=== PATIENT | male | born 1990 | race Two or more races ===

== ENCOUNTER 2018-04-17 01:09 | Emergency (ER) | payer OTHER ==
--- NOTE | 2018-04-17 07:38 | ED ---
Overdose HPI - General Chief Complaint: Overdose Stated Complaint: Drug Overdose Time Seen by Provider: 04/17/18 01:15 Source: EMS Mode of arrival: EMS Limitations: no limitations - History of Present Illness Initial Comments: This patient is 27-year-old man who was found unresponsive in the hotel. First responders did give Narcan which did revise the patient's. On arrival, patient admits to using opioids. Patient states that he was not trying to harm himself he believes he had just accidentally overdosed. Patient denies any other complaints. MD Complaint: accidental overdose -: minutes(s) Context: Accidental Overdose: wanted to get high Treatments Prior to Arrival: oxygen, narcan - Related Data Home Medications Medication Instructions Recorded Confirmed Unable To Assess [Unable to Assess] 04/17/18 04/17/18 Allergies Allergy/AdvReac Type Severity Reaction Status Date / Time No Known Allergies Allergy Verified 04/17/18 01:25 Review of Systems ROS Statement: Those systems with pertinent positive or pertinent negative responses have been documented in the HPI. ROS Other: All systems not noted in ROS Statement are negative. Constitutional: Denies: fever, chills Eyes: Denies: vision change Respiratory: Denies: cough, dyspnea Cardiovascular: Denies: chest pain, palpitations Gastrointestinal: Reports: nausea. Denies: abdominal pain, vomiting, diarrhea Musculoskeletal: Denies: back pain Skin: Denies: rash Neurological: Denies: headache, weakness, numbness Psychiatric: Denies: depression, homicidal thoughts, suicidal thoughts Past Medical History Additional Past Medical History / Comment(s): migraines History of Any Multi-Drug Resistant Organisms: None Reported Past Surgical History: No Surgical Hx Reported Past Psychological History: Anxiety Smoking Status: Current every day smoker Past Alcohol Use History: None Reported Past Drug Use History: Heroin, IV Drug Use, Prescription Drug Abuse General Exam Limitations: no limitations General appearance: alert, in no apparent distress Head exam: Present: atraumatic, normocephalic Eye exam: Present: normal appearance. Absent: scleral icterus, conjunctival injection Respiratory exam: Present: normal lung sounds bilaterally. Absent: respiratory distress, wheezes, rales, rhonchi, stridor Cardiovascular Exam: Present: normal rhythm, tachycardia, normal heart sounds. Absent: systolic murmur, diastolic murmur, rubs, gallop GI/Abdominal exam: Present: soft. Absent: distended, tenderness, guarding, rebound, mass Extremities exam: Present: normal inspection, normal capillary refill. Absent: pedal edema, calf tenderness Neurological exam: Present: alert Skin exam: Present: warm, dry, intact, normal color. Absent: rash Course Vital Signs 04/17/18 04/17/18 04/17/18 01:20 01:29 06:08 Temperature 101.4 F H 100.5 F H Pulse Rate 114 H 101 H 97 Respiratory 14 10 L 16 Rate Blood Pressure 139/84 125/61 118/75 O2 Sat by Pulse 99 95 95 Oximetry 04/17/18 08:15 Temperature 98.1 F Pulse Rate 98 Respiratory 18 Rate Blood Pressure 119/77 O2 Sat by Pulse 100 Oximetry Medical Decision Making - Medical Decision Making Patient is 27-year-old man with accidental heroin overdose. He is quin for safety. Did discuss rehabilitation and other follow-up. Disposition Clinical Impression: Poisoning by opiate or related narcotic, Drug overdose Disposition: HOME SELF-CARE Condition: Good Instructions: Adult Overdose (ED), Narcotic Use Disorder (ED) Is patient prescribed a controlled substance at d/c from ED?: No Referrals: Eyad Chacon DO [Medical Doctor] - 1-2 days
[2018-04-17 08:16] VITALS: BP 119/77; PULSE 98; RESP 18; TEMP 98.1
== END 2018-04-17 08:16 | disposition home or self-care (01) ==
LOC: EC 01:09
DX: T40.1X1A Poisoning by heroin, accidental (unintentional), initial encounter (principal); R00.0 Tachycardia, unspecified; F17.200 Nicotine dependence, unspecified, uncomplicated
CPT/HCPCS: 99284

== ENCOUNTER 2018-05-09 19:17 | Emergency (ER) | payer OTHER ==
[2018-05-09] MEDS ORDERED: NALOXONE 0.4 MG/ML 10 ML VIAL IVP STA (19:26)
[2018-05-09] MEDS ORDERED: ONDANSETRON 4 MG/2 ML VIAL IVP STA (19:27)
--- NOTE | 2018-05-09 19:34 | ED ---
General Adult HPI - General Chief complaint: Overdose Stated complaint: overdose Time Seen by Provider: 05/09/18 19:17 Source: patient, family, RN notes reviewed Mode of arrival: ambulatory Limitations: altered mental status - History of Present Illness Initial comments: This is a 27-year-old male who presents emergency Department with his father completely unresponsive dad makes the statement that he thinks his son overdosed on heroin. No further history was obtained at this time however when the patient eventually woke up from Narcan and he did admit to doing heroin. Patient denies any other drugs at this time he denies any physical complaints at this time. - Related Data Home Medications Medication Instructions Recorded Confirmed Buprenorphine HCl/Naloxone HCl 1 film SL BID 05/09/18 05/09/18 [Suboxone 8 mg-2 mg Sl Film] Allergies Allergy/AdvReac Type Severity Reaction Status Date / Time No Known Allergies Allergy Verified 05/09/18 19:58 Review of Systems ROS Statement: Those systems with pertinent positive or pertinent negative responses have been documented in the HPI. ROS Other: All systems not noted in ROS Statement are negative. Past Medical History Additional Past Medical History / Comment(s): migraines History of Any Multi-Drug Resistant Organisms: None Reported Past Surgical History: No Surgical Hx Reported Past Psychological History: Anxiety Smoking Status: Current every day smoker Past Alcohol Use History: None Reported Past Drug Use History: Heroin, IV Drug Use, Prescription Drug Abuse General Exam - General Exam Comments Initial Comments: GENERAL: Patient is well-developed and well-nourished. Patient is nontoxic and well- hydrated patient is completely unresponsive ENT: Neck is soft and supple. No significant lymphadenopathy is noted. Oropharynx is clear. Moist mucous membranes. Neck has full range of motion without eliciting any pain. EYES: The sclera were anicteric and conjunctiva were pink and moist. Eyes are pinpoint bilaterally PULMONARY: Agonal breathing CARDIOVASCULAR: There is a regular rate and rhythm without any murmurs gallops or rubs. ABDOMEN: Soft and nontender with normal bowel sounds. SKIN: Skin is clear with no lesions or rashes and otherwise unremarkable. NEUROLOGIC: Patient is poorly unresponsive MUSCULOSKELETAL: Normal extremities with adequate strength and full range of motion. LYMPHATICS: No significant lymphadenopathy is noted PSYCHIATRIC: Unable to assess Limitations: altered mental status Course Vital Signs 05/09/18 05/09/18 05/09/18 19:25 19:27 19:45 Temperature 98.3 F Pulse Rate 107 H 120 H Respiratory 6 L 16 14 Rate Blood Pressure 138/77 109/88 O2 Sat by Pulse 95 100 Oximetry Medical Decision Making - Medical Decision Making EKG shows sinus tachycardia at 131 bpm DC interval 228 QRS is 94 QT interval is 298 QTC is 440. Patient's EKG shows no ST segment elevation or depression or T wave abnormalities are noted. EKG is of poor quality secondary to the patient' s tremors after he was given Narcan. Chest x-ray showed no acute abnormality. Patient was given Narcan when he arrives here immediately woke up and vomited and became very tremulous - Lab Data Result diagrams: 05/09/18 17:56 Lab Results 05/09/18 Range/Units 17:56 WBC 8.1 (3.8-10.6) k/uL RBC 5.06 (4.30-5.90) m/uL Hgb 15.0 (13.0-17.5) gm/dL Hct 45.1 (39.0-53.0) % MCV 89.2 (80.0-100.0) fL MCH 29.6 (25.0-35.0) pg MCHC 33.2 (31.0-37.0) g/dL RDW 13.8 (11.5-15.5) % Plt Count 227 (150-450) k/uL Neutrophils % 73 % Lymphocytes % 20 % Monocytes % 3 % Eosinophils % 2 % Basophils % 1 % Neutrophils # 5.9 (1.3-7.7) k/uL Lymphocytes # 1.6 (1.0-4.8) k/uL Monocytes # 0.2 (0-1.0) k/uL Eosinophils # 0.2 (0-0.7) k/uL Basophils # 0.1 (0-0.2) k/uL Disposition Clinical Impression: Heroin overdose Disposition: HOME SELF-CARE Condition: Good Instructions: Narcotic Use Disorder (ED) 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
[2018-05-09 20:25] LABS: Basophils # (A) 0.1 k/uL (0-0.2); Basophils % (A) 1 %; Eosinophils # (A) 0.2 k/uL (0-0.7); Eosinophils % (A) 2 %; HCT 45.1 % (39.0-53.0); Lymphocytes # (A) 1.6 k/uL (1.0-4.8); Lymphocytes % (A) 20 %; MCH 29.6 pg (25.0-35.0); MCHC 33.2 g/dL (31.0-37.0); MCV 89.2 fL (80.0-100.0); Mean Platelet Volume 7.3; Monocytes # (A) 0.2 k/uL (0-1.0); Monocytes % (A) 3 %; Neutrophils # (A) 5.9 k/uL (1.3-7.7); Neutrophils % (A) 73 %; Platelet Count 227 k/uL (150-450); RBC 5.06 m/uL (4.30-5.90); RDW 13.8 % (11.5-15.5); WBC 8.1 k/uL (3.8-10.6)
--- NOTE | 2018-05-09 20:28 | XR ---
EXAMINATION: XR chest 2V DATE AND TIME: 05/09/2018 8:08 PM CLINICAL INDICATION: Difficulty breathing TECHNIQUE: 2V COMPARISON: 08/19/2014 FINDINGS: The lungs are clear. The pleural spaces are negative. The cardiac silhouette is not enlarged. The remainder of the mediastinal silhouette is unremarkable. The skeletal structures and soft tissues are negative for acute findings. IMPRESSION: NO ACUTE PROCESS.
[2018-05-09 20:36] LABS: ALT 55 U/L (21-72); AST 45 U/L (17-59); Albumin 4.1 g/dL (3.5-5.0); Alkaline Phosphatase 49 U/L (38-126); Anion Gap 13 mmol/L; Blood Urea Nitrogen 11 mg/dL (9-20); Calcium 9.5 mg/dL (8.4-10.2); Carbon Dioxide 24 mmol/L (22-30); Chloride 105 mmol/L (98-107); Glucose 155 mg/dL (74-99); Sodium 142 mmol/L (137-145); Total Bilirubin 0.8 mg/dL (0.2-1.3); Total Protein 7.4 g/dL (6.3-8.2)
[2018-05-09 20:38] LABS: Potassium 4.2 mmol/L (3.5-5.1)
[2018-05-09 21:09] VITALS: BP 118/84; PULSE 118; RESP 16; TEMP 99.3
== END 2018-05-09 21:00 | disposition home or self-care (01) ==
LOC: EC 19:17
DX: T40.1X1A Poisoning by heroin, accidental (unintentional), initial encounter (principal); R11.10 Vomiting, unspecified; F17.200 Nicotine dependence, unspecified, uncomplicated; Z79.891 Long term (current) use of opiate analgesic
CPT/HCPCS: 99284; 96374; 96375; 36415; 93005; 80053; 85025; 71046; J2310; J2405

== ENCOUNTER 2018-05-10 09:38 | Inpatient (IN) | payer OTHER ==
[2018-05-10] MEDS ORDERED: ROCURONIUM BROMIDE 10 MG/ML 10 ML VIAL IV STA (09:45)
[2018-05-10] MEDS ORDERED: ETOMIDATE 2 MG/ML 10 ML VIAL IVP STA (09:45)
[2018-05-10] MEDS ORDERED: PROPOFOL 1,000 MG in EMPTY BAG 1 BAG IV ONE (10:00)
[2018-05-10] MEDS ORDERED: SODIUM CHLORIDE 0.9% 2,000 ML IV STA (10:20)
--- NOTE | 2018-05-10 10:33 | ED ---
General Adult HPI - General Stated complaint: Overdose - History of Present Illness Initial comments: Dictation was produced using [employer] dictation software. please excuse any grammatical, word or spelling errors. Chief Complaint: 27-year-old male presents with unresponsiveness. History of Present Illness: Patient is a 27-year-old male known IV drug abuser presents with unresponsiveness. Patient was last seen normal approximately 2 AM. Patient is here in emergency department yesterday for drug overdose. He was found today by his mother at home. 5 department and EMS was called. They gave him a total of 5 mg of Narcan. For intranasal he and 1 IV. They state IV axis was unreliable. His respirations did improve. However he began having rapid shallow breathing. He did have bilateral wheezing on both sides. Patient is given supplemental oxygen U shaped over to emergency department. Unable to obtain ROS secondary to mental status - Related Data Home Medications Medication Instructions Recorded Confirmed Buprenorphine HCl/Naloxone HCl 1 film SUBLINGUAL BID 05/09/18 05/10/18 [Suboxone 8 mg-2 mg Sl Film] Allergies Allergy/AdvReac Type Severity Reaction Status Date / Time No Known Allergies Allergy Verified 05/10/18 09:43 Review of Systems ROS Statement: Those systems with pertinent positive or pertinent negative responses have been documented in the HPI. ROS Other: All systems not noted in ROS Statement are negative. Past Medical History Additional Past Medical History / Comment(s): migraines History of Any Multi-Drug Resistant Organisms: None Reported Past Surgical History: No Surgical Hx Reported Past Psychological History: Anxiety Smoking Status: Current every day smoker Past Alcohol Use History: None Reported Past Drug Use History: Heroin, IV Drug Use, Prescription Drug Abuse General Exam - General Exam Comments Initial Comments: PHYSICAL EXAM: General Impression: Obtunded, rapid breathing HEENT: Normocephalic atraumatic, extra-ocular movements intact, pupils equal and reactive to light bilaterally, mucous membranes moist. Cardiovascular: Tachycardic Chest: Bilateral lung wheezing, bilateral crackles, decreased lung sounds to the right upper lung field Abdomen: Bowel sounds present, abdomen soft non-distended, no organomegaly Musculoskeletal: Pulses present and equal in all extremities, no peripheral edema Motor: No movement, unresponsive Neurological: Unresponsive, pupils 4 mm reactive Skin: Multiple lesions over the superficial veins Course Vital Signs 05/10/18 05/10/18 05/10/18 10:20 11:10 11:20 Temperature 97.0 F L Pulse Rate 140 H 141 H 135 H Respiratory 38 H 43 H 24 Rate Blood Pressure 130/69 126/86 O2 Sat by Pulse 90 L 98 Oximetry 05/10/18 11:30 Temperature Pulse Rate 131 H Respiratory 22 Rate Blood Pressure 96/75 O2 Sat by Pulse 100 Oximetry Procedures - Intubation Time Out Performed: Yes Sedative: Etomidate Paralytic: Rocuronium Laryngoscope: Izabella Size: 4 ET Tube Size: 8 Tube Secured Depth (cm): 26 Tube Secured Location: lips Tube Placement Confirmation: visualized tube passing through cords, equal breath sounds bilaterally, no breath sounds over epigastrium, confirmation by capnometry Patient Tolerated Procedure: well, no complications Intubation Complications: none Medical Decision Making - Medical Decision Making ED course: 27-year-old male with known history of IV drug abuse presents with overdose. Patient was the neck and in the field. Patient in respiratory distress. He is unresponsive. Vital signs upon arrival shows normotensive blood pressure, tachycardia in the 140s.She is severely tachypnea and increased work of breathing. He was paralyzed and intubated using RSI method. Ultrasound was used to perform IV placement. Patient is given Ativan for tachycardia. Patient is placed on propofol drip for sedation. Patient given multiple boluses of intravenous fluids. Placenta patient chest x-ray showed ET tube above the ladonna. ET tube was advanced to adequate placement. Suction was performed by respiratory therapy with retrieval of emesis throughout lungs. Abdomen evaluation obtained. Leukocytosis of 15.8, rest of CBC is unremarkable. Blood gas shows pH of 7.3, pCO2 50, pO2 132 and bicarb of 25. She was initially placed at a rate of 14. Rate was increased to 16. Mylicon obtained showing mild gap acidosis. Patient has elevated renal markers with the creatinine of 1.29. Lactic acid level .3. Patient's troponin 0.260. Urinalysis is unremarkable. Toxicology screen is positive for benzodiazepine. This x-ray obtained showing right upper lobe collapse suggesting endobronchial obstruction. There is also left-sided airspace disease likely related to aspiration pneumonia. Patient likely aspirated from emesis. Patient likely relapse and had another episode of overdose. Likely suffered severe hypoxic encephalopathy. Computed tomography scan of the head was obtained showing no acute processes. Patient any critical care. He'll be transferred to intensive care unit for further care. EKG interpretation: Ventricular rate 126, sinus tachycardia, MO interval 144, QRS 96, QTC 469. No MO prolongation, no QTC prolongation, no ST or T-wave changes noted. Overall, this EKG is unremarkable - Lab Data Result diagrams: 05/10/18 11:25 05/10/18 11:25 Lab Results 05/10/18 05/10/18 05/10/18 Range/Units 10:51 11:25 11:25 WBC 15.8 H (3.8-10.6) k/uL RBC 5.09 (4.30-5.90) m/uL Hgb 15.4 (13.0-17.5) gm/dL Hct 45.9 (39.0-53.0) % MCV 90.1 (80.0-100.0) fL MCH 30.3 (25.0-35.0) pg MCHC 33.6 (31.0-37.0) g/dL RDW 13.9 (11.5-15.5) % Plt Count 248 (150-450) k/uL Neutrophils % (Manual) 77 % Band Neutrophils % 12 % Lymphocytes % (Manual) 3 % Monocytes % (Manual) 8 % Neutrophils # (Manual) 14.00 H (1.3-7.7) k/uL Lymphocytes # (Manual) 0.47 L (1.0-4.8) k/uL Monocytes # (Manual) 1.26 H (0-1.0) k/uL Nucleated RBCs 0 (0-0) /100 WBC Toxic Granulation Present Poikilocytosis (manual Present Anisocytosis (manual) Present PT 11.9 (9.0-12.0) sec INR 1.2 H (<1.2) Sample Site rrad ABG pH 7.30 L (7.35-7.45) ABG pCO2 50 H (35-45) mmHg ABG pO2 132 H (83-108) mmHg ABG HCO3 25 (21-25) mmol/L ABG Total CO2 26 H (19-24) mmol/L ABG O2 Saturation 99.3 H (94-97) % ABG Base Excess -1.7 mmol/L Garth Test Yes FiO2 100 % Sodium (137-145) mmol/L Potassium (3.5-5.1) mmol/L Chloride (98-107) mmol/L Carbon Dioxide (22-30) mmol/L Anion Gap mmol/L BUN (9-20) mg/dL Creatinine (0.66-1.25) mg/dL Est GFR (CKD-EPI)AfAm (>60 ml/min/1.73 sqM) Est GFR (CKD-EPI)NonAf (>60 ml/min/1.73 sqM) Glucose (74-99) mg/dL Plasma Lactic Acid Renan (0.7-2.0) mmol/L Calcium (8.4-10.2) mg/dL Total Bilirubin (0.2-1.3) mg/dL Conjugated Bilirubin (0.0-0.3) mg/dL Unconjugated Bilirubin (0.0-1.1) mg/dL Delta Bilirubin (0.0-0.2) mg/dL AST (17-59) U/L ALT (21-72) U/L Alkaline Phosphatase (38-126) U/L Total Creatine Kinase (55-170) U/L CK-MB (CK-2) (0.0-2.4) ng/mL CK-MB (CK-2) Rel Index Troponin I (0.000-0.034) ng/mL Total Protein (6.3-8.2) g/dL Albumin (3.5-5.0) g/dL Lipase (23-300) U/L Urine Color Urine Appearance (Clear) Urine pH (5.0-8.0) Ur Specific Mcgregor (1.001-1.035) Urine Protein (Negative) Urine Glucose (UA) (Negative) Urine Ketones (Negative) Urine Blood (Negative) Urine Nitrite (Negative) Urine Bilirubin (Negative) Urine Urobilinogen (<2.0) mg/dL Ur Leukocyte Esterase (Negative) Urine RBC (0-5) /hpf Urine WBC (0-5) /hpf Ur Squamous Epith Cells (0-4) /hpf Hyaline Casts (0-2) /lpf Urine Mucus (None) /hpf Salicylates mg/dL Urine Opiates Screen (NotDetected) Ur Oxycodone Screen (NotDetected) Urine Methadone Screen (NotDetected) Ur Propoxyphene Screen (NotDetected) Acetaminophen ug/mL Ur Barbiturates Screen (NotDetected) U Tricyclic Antidepress (NotDetected) Ur Phencyclidine Scrn (NotDetected) Ur Amphetamines Screen (NotDetected) U Methamphetamines Scrn (NotDetected) U Benzodiazepines Scrn (NotDetected) Urine Cocaine Screen (NotDetected) U Marijuana (THC) Screen (NotDetected) Serum Alcohol mg/dL 05/10/18 05/10/18 05/10/18 Range/Units 11:25 11:25 11:25 WBC (3.8-10.6) k/uL RBC (4.30-5.90) m/uL Hgb (13.0-17.5) gm/dL Hct (39.0-53.0) % MCV (80.0-100.0) fL MCH (25.0-35.0) pg MCHC (31.0-37.0) g/dL RDW (11.5-15.5) % Plt Count (150-450) k/uL Neutrophils % (Manual) % Band Neutrophils % % Lymphocytes % (Manual) % Monocytes % (Manual) % Neutrophils # (Manual) (1.3-7.7) k/uL Lymphocytes # (Manual) (1.0-4.8) k/uL Monocytes # (Manual) (0-1.0) k/uL Nucleated RBCs (0-0) /100 WBC Toxic Granulation Poikilocytosis (manual Anisocytosis (manual) PT (9.0-12.0) sec INR (<1.2) Sample Site ABG pH (7.35-7.45) ABG pCO2 (35-45) mmHg ABG pO2 (83-108) mmHg ABG HCO3 (21-25) mmol/L ABG Total CO2 (19-24) mmol/L ABG O2 Saturation (94-97) % ABG Base Excess mmol/L Garth Test FiO2 % Sodium 142 (137-145) mmol/L Potassium 4.2 (3.5-5.1) mmol/L Chloride 108 H (98-107) mmol/L Carbon Dioxide 20 L (22-30) mmol/L Anion Gap 14 mmol/L BUN 17 (9-20) mg/dL Creatinine 1.29 H (0.66-1.25) mg/dL Est GFR (CKD-EPI)AfAm 86 (>60 ml/min/1.73 sqM) Est GFR (CKD-EPI)NonAf 75 (>60 ml/min/1.73 sqM) Glucose 107 H (74-99) mg/dL Plasma Lactic Acid Renan 6.3 H* (0.7-2.0) mmol/L Calcium 8.6 (8.4-10.2) mg/dL Total Bilirubin 0.8 (0.2-1.3) mg/dL Conjugated Bilirubin 0.0 (0.0-0.3) mg/dL Unconjugated Bilirubin 0.4 (0.0-1.1) mg/dL Delta Bilirubin 0.4 H (0.0-0.2) mg/dL AST 59 (17-59) U/L ALT 63 (21-72) U/L Alkaline Phosphatase 49 (38-126) U/L Total Creatine Kinase 88 (55-170) U/L CK-MB (CK-2) 2.1 (0.0-2.4) ng/mL CK-MB (CK-2) Rel Index 2.4 Troponin I 0.260 H* (0.000-0.034) ng/mL Total Protein 6.6 (6.3-8.2) g/dL Albumin 3.5 (3.5-5.0) g/dL Lipase 20 L (23-300) U/L Urine Color Urine Appearance (Clear) Urine pH (5.0-8.0) Ur Specific Mcgregor (1.001-1.035) Urine Protein (Negative) Urine Glucose (UA) (Negative) Urine Ketones (Negative) Urine Blood (Negative) Urine Nitrite (Negative) Urine Bilirubin (Negative) Urine Urobilinogen (<2.0) mg/dL Ur Leukocyte Esterase (Negative) Urine RBC (0-5) /hpf Urine WBC (0-5) /hpf Ur Squamous Epith Cells (0-4) /hpf Hyaline Casts (0-2) /lpf Urine Mucus (None) /hpf Salicylates <1.0 mg/dL Urine Opiates Screen (NotDetected) Ur Oxycodone Screen (NotDetected) Urine Methadone Screen (NotDetected) Ur Propoxyphene Screen (NotDetected) Acetaminophen <10.0 ug/mL Ur Barbiturates Screen (NotDetected) U Tricyclic Antidepress (NotDetected) Ur Phencyclidine Scrn (NotDetected) Ur Amphetamines Screen (NotDetected) U Methamphetamines Scrn (NotDetected) U Benzodiazepines Scrn (NotDetected) Urine Cocaine Screen (NotDetected) U Marijuana (THC) Screen (NotDetected) Serum Alcohol <10 mg/dL 05/10/18 05/10/18 Range/Units 11:41 11:41 WBC (3.8-10.6) k/uL RBC (4.30-5.90) m/uL Hgb (13.0-17.5) gm/dL Hct (39.0-53.0) % MCV (80.0-100.0) fL MCH (25.0-35.0) pg MCHC (31.0-37.0) g/dL RDW (11.5-15.5) % Plt Count (150-450) k/uL Neutrophils % (Manual) % Band Neutrophils % % Lymphocytes % (Manual) % Monocytes % (Manual) % Neutrophils # (Manual) (1.3-7.7) k/uL Lymphocytes # (Manual) (1.0-4.8) k/uL Monocytes # (Manual) (0-1.0) k/uL Nucleated RBCs (0-0) /100 WBC Toxic Granulation Poikilocytosis (manual Anisocytosis (manual) PT (9.0-12.0) sec INR (<1.2) Sample Site ABG pH (7.35-7.45) ABG pCO2 (35-45) mmHg ABG pO2 (83-108) mmHg ABG HCO3 (21-25) mmol/L ABG Total CO2 (19-24) mmol/L ABG O2 Saturation (94-97) % ABG Base Excess mmol/L Garth Test FiO2 % Sodium (137-145) mmol/L Potassium (3.5-5.1) mmol/L Chloride (98-107) mmol/L Carbon Dioxide (22-30) mmol/L Anion Gap mmol/L BUN (9-20) mg/dL Creatinine (0.66-1.25) mg/dL Est GFR (CKD-EPI)AfAm (>60 ml/min/1.73 sqM) Est GFR (CKD-EPI)NonAf (>60 ml/min/1.73 sqM) Glucose (74-99) mg/dL Plasma Lactic Acid Renan (0.7-2.0) mmol/L Calcium (8.4-10.2) mg/dL Total Bilirubin (0.2-1.3) mg/dL Conjugated Bilirubin (0.0-0.3) mg/dL Unconjugated Bilirubin (0.0-1.1) mg/dL Delta Bilirubin (0.0-0.2) mg/dL AST (17-59) U/L ALT (21-72) U/L Alkaline Phosphatase (38-126) U/L Total Creatine Kinase (55-170) U/L CK-MB (CK-2) (0.0-2.4) ng/mL CK-MB (CK-2) Rel Index Troponin I (0.000-0.034) ng/mL Total Protein (6.3-8.2) g/dL Albumin (3.5-5.0) g/dL Lipase (23-300) U/L Urine Color Yellow Urine Appearance Cloudy (Clear) Urine pH 5.5 (5.0-8.0) Ur Specific Mcgregor 1.015 (1.001-1.035) Urine Protein 1+ H (Negative) Urine Glucose (UA) Negative (Negative) Urine Ketones 1+ H (Negative) Urine Blood Negative (Negative) Urine Nitrite Negative (Negative) Urine Bilirubin Negative (Negative) Urine Urobilinogen 2.0 (<2.0) mg/dL Ur Leukocyte Esterase Negative (Negative) Urine RBC <1 (0-5) /hpf Urine WBC 5 (0-5) /hpf Ur Squamous Epith Cells <1 (0-4) /hpf Hyaline Casts 15 H (0-2) /lpf Urine Mucus Rare H (None) /hpf Salicylates mg/dL Urine Opiates Screen Not Detected (NotDetected) Ur Oxycodone Screen Not Detected (NotDetected) Urine Methadone Screen Not Detected (NotDetected) Ur Propoxyphene Screen Not Detected (NotDetected) Acetaminophen ug/mL Ur Barbiturates Screen Not Detected (NotDetected) U Tricyclic Antidepress Not Detected (NotDetected) Ur Phencyclidine Scrn Not Detected (NotDetected) Ur Amphetamines Screen Not Detected (NotDetected) U Methamphetamines Scrn Not Detected (NotDetected) U Benzodiazepines Scrn Detected H (NotDetected) Urine Cocaine Screen Not Detected (NotDetected) U Marijuana (THC) Screen Not Detected (NotDetected) Serum Alcohol mg/dL Critical Care Time Critical Care Time: Yes Total Critical Care Time: 31 Disposition Clinical Impression: Ventilator dependent, Respiratory failure, Overdose Disposition: ADMITTED IP TO THIS [facility] Condition: Critical Decision Time: 13:52
[2018-05-10 11:00] LABS: ABG Base Excess -1.7 mmol/L; ABG HCO3 25 mmol/L (21-25); ABG Oxygen Saturation 99.3 % (94-97); ABG PCO2 50 mmHg (35-45); ABG PO2 132 mmHg (83-108); ABG TCO2 26 mmol/L (19-24)
--- NOTE | 2018-05-10 11:05 | XR ---
EXAMINATION TYPE: XR chest 1V DATE OF EXAM: 05/10/2018 COMPARISON: 05/09/2018 HISTORY: Ventilatory dependent respiratory failure. TECHNIQUE: Single frontal view of the chest is obtained. FINDINGS: There is new right upper lobe collapse suggesting endobronchial obstruction, possibly from mucous plugging. Endotracheal tube has been inserted in the interim terminating approximately 6.5 cm from the ladonna. This could be advanced approximately 3 cm for optimal placement. New patchy left-si ded airspace disease is now seen that could represent multifocal atelectasis or developing pneumonia. Right hemidiaphragm elevation is secondary to the right upper lobe atelectasis. Cardia mediastinal s ilhouette is stable and mildly enlarged. Enteric tube is also seen with its fenestrated portion beyon d the gastroesophageal junction, placed. IMPRESSION: 1. New right upper lobe collapse suggesting endobronchial obstruction as this was not seen on the rec ent exam of 05/09/2018. Endobronchial mucous plugging should be considered. 2. New patchy left sided multifocal airspace disease that may relate to atelectasis or pneumonia. 3. Interval intubation with cephalad position of the endotracheal tube that could be advanced approxi mately 3 cm for optimal placement.
--- NOTE | 2018-05-10 11:07 | XR ---
EXAMINATION TYPE: XR chest 1V DATE OF EXAM: 05/10/2018 COMPARISON: 05/10/2018 HISTORY: Ventilatory dependent respiratory failure. TECHNIQUE: Single frontal view of the chest is obtained. FINDINGS: Findings are unchanged from the prior obtained 2 minutes before on the same date. Again th ere is partial right upper lobe collapse, cephalad placement of the and endotracheal tube, satisfacto ry placement of the enteric tube, right hemithorax volume loss secondary to the atelectasis and patch y left-sided airspace disease. IMPRESSION: Stable findings from the exam immediately prior to this. Again consider endobronchial mu cous plugging of the right upper lobe and advancement of the endotracheal tube approximately 3 cm.
[2018-05-10] MEDS ORDERED: LORazepam 2 MG/ML INJ IV STA (11:21)
[2018-05-10 11:39] LABS: HCT 45.9 % (39.0-53.0); HGB 15.4 gm/dL (13.0-17.5); MCH 30.3 pg (25.0-35.0); MCHC 33.6 g/dL (31.0-37.0); MCV 90.1 fL (80.0-100.0); Mean Platelet Volume 7.3; Platelet Count 248 k/uL (150-450); RBC 5.09 m/uL (4.30-5.90); RDW 13.9 % (11.5-15.5); WBC 15.8 k/uL (3.8-10.6)
[2018-05-10 11:52] LABS: ALT 63 U/L (21-72); AST 59 U/L (17-59); Acetaminophen <10.0 ug/mL; Albumin 3.5 g/dL (3.5-5.0); Alcohol <10 mg/dL; Alkaline Phosphatase 49 U/L (38-126); Anion Gap 14 mmol/L; Bilirubin, Delta 0.4 mg/dL (0.0-0.2); Bilirubin,Unconjugated 0.4 mg/dL (0.0-1.1); Blood Urea Nitrogen 17 mg/dL (9-20); Calcium 8.6 mg/dL (8.4-10.2); Carbon Dioxide 20 mmol/L (22-30); Chloride 108 mmol/L (98-107); Glucose 107 mg/dL (74-99); Lipase 20 U/L (23-300); Salicylate <1.0 mg/dL; Sodium 142 mmol/L (137-145); Total Bilirubin 0.8 mg/dL (0.2-1.3); Total Protein 6.6 g/dL (6.3-8.2)
[2018-05-10 11:56] LABS: INR 1.2 (<1.2); Prothrombin Time 11.9 sec (9.0-12.0)
[2018-05-10 12:03] LABS: Band Neutrophils % 12 %; Lymphocytes # (M) 0.47 k/uL (1.0-4.8); Monocytes # (M) 1.26 k/uL (0-1.0); Neutrophils % (M) 77 %; Nucleated Red Blood Cells 0 /100 WBC (0-0); Total Cells Counted 100
[2018-05-10] MEDS ORDERED: NALOXONE 0.4 MG/ML 1 ML VIAL IV PRN (12:03)
[2018-05-10 12:04] LABS: Toxic Granulation Present
[2018-05-10 12:05] LABS: Anisocytosis (M) Present; Poikilocytosis (M) Present
[2018-05-10 12:11] LABS: Potassium 4.2 mmol/L (3.5-5.1)
[2018-05-10 12:14] LABS: Appearance,Urine Cloudy (Clear); Bilirubin,Urine Negative (Negative); Blood,Urine Negative (Negative); Color,Urine Yellow; Glucose,Urine (UA) Negative (Negative); Hyaline Casts,Urine 15 /lpf (0-2); Ketones,Urine 1+ (Negative); Leukocyte Esterase,Urine Negative (Negative); Mucus,Urine Rare /hpf; Nitrite,Urine Negative (Negative); PH, Urine 5.5 (5.0-8.0); Protein,Urine 1+ (Negative); RBC,Urine <1 /hpf (0-5); Specific Gravity,Urine 1.015 (1.001-1.035); Squamous Epithelial Cell,Urine <1 /hpf (0-4); WBC,Urine 5 /hpf (0-5)
[2018-05-10] MEDS: SODIUM CHLORIDE 0.9% 1,000 ML IV SCH ×2 (12:15→20:18)
[2018-05-10 12:18] LABS: Cocaine Screen,Urine Not Detected (NotDetected); Phencyclidine Screen,Urine Not Detected (NotDetected); Urn Cannabinoid Scrn Not Detected (NotDetected)
[2018-05-10 12:19] LABS: Creatine Kinase MB 2.1 ng/mL (0.0-2.4)
[2018-05-10 12:19] LABS: Amphetamine Screen,Urine Not Detected (NotDetected); Barbiturate Screen,Urine Not Detected (NotDetected); Benzodiazepines Screen,Urine Detected (NotDetected); Methadone Screen, Urine Not Detected (NotDetected); Opiate Screen,Urine Not Detected (NotDetected); Oxycodone Screen, Urine Not Detected (NotDetected); Tricyclic Antidepressant,Urine Not Detected (NotDetected)
--- NOTE | 2018-05-10 12:21 | P.CNPUL ---
History of Present Illness Consult date: 05/10/18 Reason for consult: other Chief complaint: Narcotic overdose, respiratory failure History of present illness: Pulmonary consultation dated 05/10/2018 This is a 27-year-old male who is otherwise healthy. The patient apparently has been using heroin and narcotics for some time. He apparently had an overdose back in March and more recently was in the emergency room yesterday with an overdose. He apparently was evaluated and discharged home. More recently he was found to be unresponsive or poorly responsive by a family member. EMS was called and he was brought in. He apparently sustained significant aspiration. In the emergency room, he received some Narcan but did not really arouse well and he was intubated. There were able to suction quite a bit of vomitus on the endotracheal tube. Chest x-ray shows some right upper lobe infiltrate and some left lower lobe infiltrate. We spoke to the father and the mother. This morning in the emergency department. The patient apparently has no past medical history other than insomnia. He does have sleeping pills but does not use them. Apparently has been using heroin for some time. Again he had an episode of overdose back in March of this year and then another episode yesterday in the emergency department. Apparently yesterday, noted drug screen was done. I spoke to the emergency room physician today. The patient had 2 IVs and 18-gauge and a 20-gauge in the periphery. In addition, he was intubated. He was placed on mechanical ventilator. He was poorly responsive. He was receiving some IV fluids and propofol for sedation. Review of Systems ROS unobtainable: due to endotracheal tube Past Medical History Additional Past Medical History / Comment(s): migraines History of Any Multi-Drug Resistant Organisms: None Reported Past Surgical History: No Surgical Hx Reported Past Psychological History: Anxiety Smoking Status: Current every day smoker Past Alcohol Use History: None Reported Past Drug Use History: Heroin, IV Drug Use, Prescription Drug Abuse Medications and Allergies Home Medications Medication Instructions Recorded Confirmed Type Buprenorphine HCl/Naloxone HCl 1 film SUBLINGUAL BID 05/09/18 05/10/18 History [Suboxone 8 mg-2 mg Sl Film] Allergies Allergy/AdvReac Type Severity Reaction Status Date / Time No Known Allergies Allergy Verified 05/10/18 09:43 Physical Exam Osteopathic Statement: *. No significant issues noted on an osteopathic structural exam other than those noted in the History and Physical/Consult. Vitals: Vital Signs Temp Pulse Resp BP Pulse Ox 05/10/18 11:30 131 H 22 96/75 100 05/10/18 11:20 135 H 24 126/86 05/10/18 11:10 141 H 43 H 98 05/10/18 10:20 97.0 F L 140 H 38 H 130/69 90 L Intake and Output 05/09/18 05/10/18 05/10/18 22:59 06:59 14:59 Output Total 300 Balance -300 Output: Urine 300 Uretheral ([place]) 300 Other: Weight 101 kg No acute distress, sedated, with an orally placed endotracheal tube and NG tube. HEENT examination is grossly unremarkable. Mucous membranes are moist. Pupils midpoint and reactive. Neck supple. Full range of motion. No adenopathy thyromegaly or neck vein distention. Cardiovascular examination reveals regular rhythm rate. S1-S2 normal. No S3 or S4. No discernible murmur noted. Lungs reveal coarse bilateral breath sounds. There are inspiratory and expiratory rhonchi. Some bilateral crackles. No wheezes. Breath sounds equal bilaterally. Abdomen soft and bowel sounds are heard. No masses or tenderness. Extremities are intact. No cyanosis clubbing or edema. Skin is without rash or lesion. Neurologic examination could not be adequately assessed as the patient's sedated on propofol. Results - Laboratory Findings CBC and BMP: 05/10/18 11:25 ABG ABG pH 7.30 (7.35-7.45) L 05/10/18 10:51 ABG pCO2 50 mmHg (35-45) H 05/10/18 10:51 ABG pO2 132 mmHg (83-108) H 05/10/18 10:51 ABG O2 Saturation 99.3 % (94-97) H 05/10/18 10:51 PT/INR, D-dimer PT 11.9 sec (9.0-12.0) 05/10/18 11:25 INR 1.2 (<1.2) H 05/10/18 11:25 Abnormal lab findings: Abnormal Labs 05/10/18 05/10/18 05/10/18 10:51 11:25 11:25 WBC 15.8 H Neutrophils # (Manual) 14.00 H Lymphocytes # (Manual) 0.47 L Monocytes # (Manual) 1.26 H INR 1.2 H ABG pH 7.30 L ABG pCO2 50 H ABG pO2 132 H ABG Total CO2 26 H ABG O2 Saturation 99.3 H - Diagnostic Findings Chest x-ray: report reviewed (Chest x-ray, labs and medications are reviewed.), image reviewed Assessment and Plan Assessment: Assessment Suspected heroin overdose with acute hypoxemic respiratory failure, complicated by gastric acid aspiration and diffuse bilateral infiltrates. History of prior drug overdose with narcotics most recently yesterday and then back in March of this year. History of insomnia History of ongoing tobacco use Plan: Plan dated 05/10/2018 Chest x-rays evaluated in the emergency department. He has a right upper lobe infiltrate with some right upper lobe collapse as well as a left lower lobe infiltrate. Likely the patient had significant gastric acid aspiration. White count is 15.8 hemoglobin 15.4 hematocrit 45.9 and platelet count is 248,000. Blood gases show a PaO2 of 132 a PaCO2 of 50 and a pH of 7.30. This was 100%. Sodium 142 potassium 4.2 chloride is 108 CO2 20 anion gap 14 BUN and creatinine were 17 and 1.29. Lactic acid was 6.3. X-rays labs and medications are all reviewed. I review the time in the emergency department talking the patient's father and mother. They understand the seriousness of this problem. This was an ICU bed opens up, we'll move the patient to the intensive care unit. He may need a central line and arterial line. Additional recommendations and suggestions are forthcoming. Prognosis is guarded. Critical care time 35 minutes Time with Patient: Greater than 30
[2018-05-10] MEDS ORDERED: IPRATROPIUM-ALBUTEROL 3 ML NEB INHALATION PRN (12:22)
[2018-05-10 12:28] LABS: Troponin I 0.26 ng/mL (0.000-0.034)
--- NOTE | 2018-05-10 13:38 | CT ---
EXAMINATION TYPE: CT brain wo con DATE OF EXAM: 05/10/2018 COMPARISON: Prior CT brain 09/21/2012 HISTORY: Pain Automated Exposure Control for Dose Reduction was Utilized. TECHNIQUE: CT scan of the head is performed without contrast. FINDINGS: There is no acute intracranial hemorrhage, mass effect, or midline shift identified. The ventricles and sulci are within normal limits in size. The globes are intact and the visualized sin uses are clear. Endotracheal tube is in place. Patient is canted within the gantry. IMPRESSION: No acute intracranial hemorrhage, mass effect, or midline shift is seen.
[2018-05-10 14:10] VITALS: RESP 18
[2018-05-10] MEDS ORDERED: MIDAZOLAM 2 MG/2 ML VIAL IV ONE (14:14)
[2018-05-10] MEDS: PROPOFOL 1,000 MG in EMPTY BAG 1 BAG IV SCH (15:45)
[2018-05-10 15:55] LABS: Glucose,Whole Blood 113 mg/dL (75-99)
[2018-05-10] MEDS: IPRATROPIUM-ALBUTEROL 3 ML NEB INHALATION SCH ×3 (16:17→23:42)
[2018-05-10] MEDS ORDERED: ACETAMINOPHEN TAB 325 MG TAB PO PRN (16:54)
--- NOTE | 2018-05-10 17:08 | P.HPIM ---
History of Present Illness 27-year-old the male admitted after heroine overdose found unresponsive at home aspirated at home but still aspiration pneumonia in the right upper lobe had similar event in the past will receive Narcan was sent home came to ER this time unresponsive brought in by the family members and was subsequently intubated in ER chest x-ray showing right upper lobe infiltrate. Patient is presently intubated is also on propofol with the pupillary constriction patient does have cough reflex not breathing over the ventilator. Constricted pupils probably secondary to propofol on assist-control ventilation. Patient has fevers patient is on Zosyn at this time for aspiration pneumonia does have mildly elevated troponin repeating 2 more sets of troponins his troponin is 0.6 with the acute renal failure. Good urine output presently. Patient is on FiO2 of 60% set up respiratory of 16 not breathing over the ventilator. PEEP of 5 Review of Systems Unable to obtain Past Medical History Additional Past Medical History / Comment(s): migraines History of Any Multi-Drug Resistant Organisms: None Reported Past Surgical History: No Surgical Hx Reported Additional Past Anesthesia/Blood Transfusion Reaction / Comment(s): Pt has never had surgery. Smoking Status: Current every day smoker - Past Family History Father Family Medical History: No Reported History Additional Family Medical History / Comment(s): Father is healthy Mother Family Medical History: No Reported History Additional Family Medical History / Comment(s): Mother is healthy. Medications and Allergies Home Medications Medication Instructions Recorded Confirmed Type Buprenorphine HCl/Naloxone HCl 1 film SUBLINGUAL BID 05/09/18 05/10/18 History [Suboxone 8 mg-2 mg Sl Film] Allergies Allergy/AdvReac Type Severity Reaction Status Date / Time No Known Allergies Allergy Verified 05/10/18 09:43 Physical Exam Vitals: Vital Signs Temp Pulse Resp BP Pulse Ox 05/10/18 16:32 102 H 05/10/18 16:18 110 H 05/10/18 15:13 96.8 F L 05/10/18 15:00 113 H 18 101/59 05/10/18 14:40 112 H 18 105/43 05/10/18 14:20 112 H 18 97/61 05/10/18 14:00 113 H 18 104/71 05/10/18 13:40 112 H 18 95/62 99 05/10/18 13:20 113 H 18 92/55 95 05/10/18 12:40 95/48 05/10/18 12:20 122 H 20 93/50 05/10/18 12:00 125 H 20 112/47 05/10/18 11:40 128 H 19 113/69 100 05/10/18 11:30 131 H 22 96/75 100 05/10/18 11:20 135 H 24 126/86 05/10/18 11:10 141 H 43 H 98 05/10/18 10:20 97.0 F L 140 H 38 H 130/69 90 L Intake and Output 05/10/18 05/10/18 05/10/18 06:59 14:59 22:59 Intake Total 5 Output Total 300 Balance -295 Intake: Intake, IV Titration 5 Amount Propofol 1,000 mg In 5 Empty Bag 1 bag @ Per Protocol IV .Q0M ONE Rx#: [id number] Output: Urine 300 Uretheral ([place]) 300 Other: Weight 101 kg PHYSICAL EXAMINATION: GENERAL: Patient is intubated , on propofol, withdrawing to painful stimuli, NG tube in place to suction HEENT: Pupils are constricted. EOMI. No scleral icterus. No conjunctival pallor. Normocephalic, atraumatic. No pharyngeal erythema. No thyromegaly. CARDIOVASCULAR: S1 and S2 present. No murmurs, rubs, or gallops. PULMONARY: Chest is clear to auscultation, no wheezing or crackles. ABDOMEN: Soft, nontender, nondistended, normoactive bowel sounds. No palpable organomegaly. MUSCULOSKELETAL: No joint swelling or deformity. EXTREMITIES: No cyanosis, clubbing, or pedal edema. NEUROLOGICAL: Intubated and sedated SKIN: No rashes. Results CBC & Chem 7: 05/10/18 11:25 05/10/18 11:25 Labs: Abnormal Lab Results - Last 24 Hours (Table) 05/10/18 05/10/18 05/10/18 Range/Units 10:51 11:25 11:25 WBC 15.8 H (3.8-10.6) k/uL Neutrophils # (Manual) 14.00 H (1.3-7.7) k/uL Lymphocytes # (Manual) 0.47 L (1.0-4.8) k/uL Monocytes # (Manual) 1.26 H (0-1.0) k/uL INR 1.2 H (<1.2) ABG pH 7.30 L (7.35-7.45) ABG pCO2 50 H (35-45) mmHg ABG pO2 132 H (83-108) mmHg ABG Total CO2 26 H (19-24) mmol/L ABG O2 Saturation 99.3 H (94-97) % Chloride (98-107) mmol/L Carbon Dioxide (22-30) mmol/L Creatinine (0.66-1.25) mg/dL Glucose (74-99) mg/dL POC Glucose (mg/dL) (75-99) mg/dL Plasma Lactic Acid Renan (0.7-2.0) mmol/L Delta Bilirubin (0.0-0.2) mg/dL Troponin I (0.000-0.034) ng/mL Lipase (23-300) U/L Urine Protein (Negative) Urine Ketones (Negative) Hyaline Casts (0-2) /lpf Urine Mucus (None) /hpf U Benzodiazepines Scrn (NotDetected) 05/10/18 05/10/18 05/10/18 Range/Units 11:25 11:25 11:25 WBC (3.8-10.6) k/uL Neutrophils # (Manual) (1.3-7.7) k/uL Lymphocytes # (Manual) (1.0-4.8) k/uL Monocytes # (Manual) (0-1.0) k/uL INR (<1.2) ABG pH (7.35-7.45) ABG pCO2 (35-45) mmHg ABG pO2 (83-108) mmHg ABG Total CO2 (19-24) mmol/L ABG O2 Saturation (94-97) % Chloride 108 H (98-107) mmol/L Carbon Dioxide 20 L (22-30) mmol/L Creatinine 1.29 H (0.66-1.25) mg/dL Glucose 107 H (74-99) mg/dL POC Glucose (mg/dL) (75-99) mg/dL Plasma Lactic Acid Renan 6.3 H* (0.7-2.0) mmol/L Delta Bilirubin 0.4 H (0.0-0.2) mg/dL Troponin I 0.260 H* (0.000-0.034) ng/mL Lipase 20 L (23-300) U/L Urine Protein (Negative) Urine Ketones (Negative) Hyaline Casts (0-2) /lpf Urine Mucus (None) /hpf U Benzodiazepines Scrn (NotDetected) 05/10/18 05/10/18 05/10/18 Range/Units 11:41 11:41 15:52 WBC (3.8-10.6) k/uL Neutrophils # (Manual) (1.3-7.7) k/uL Lymphocytes # (Manual) (1.0-4.8) k/uL Monocytes # (Manual) (0-1.0) k/uL INR (<1.2) ABG pH (7.35-7.45) ABG pCO2 (35-45) mmHg ABG pO2 (83-108) mmHg ABG Total CO2 (19-24) mmol/L ABG O2 Saturation (94-97) % Chloride (98-107) mmol/L Carbon Dioxide (22-30) mmol/L Creatinine (0.66-1.25) mg/dL Glucose (74-99) mg/dL POC Glucose (mg/dL) 113 H (75-99) mg/dL Plasma Lactic Acid Renan (0.7-2.0) mmol/L Delta Bilirubin (0.0-0.2) mg/dL Troponin I (0.000-0.034) ng/mL Lipase (23-300) U/L Urine Protein 1+ H (Negative) Urine Ketones 1+ H (Negative) Hyaline Casts 15 H (0-2) /lpf Urine Mucus Rare H (None) /hpf U Benzodiazepines Scrn Detected H (NotDetected) Thrombosis Risk Factor Assmnt - Choose All That Apply Any of the Below Risk Factors Present?: Yes Each Factor Represents 1 point: Obesity (BMI >25), Serious lung disease incl. pneumonia (< 1month) Other Risk Factors: No Other congenital or acquired thrombophilia - If yes, enter type in comment: No Thrombosis Risk Factor Assessment Total Risk Factor Score: 2 Thrombosis Risk Factor Assessment Level: Low Risk Assessment and Plan Plan: Acute respiratory failure hypercapnic respiratory failure secondary to opiate overdose patient is presently intubated on mechanical ventilator -Sepsis secondary to aspiration pneumonia patient is on Zosyn which will be continued -Acute renal failure secondary to possible sepsis and respiratory failure IV fluids at t 100 mL per hour after boluses of IV fluids lactic acidosis secondary to sepsis -Lactic acidosis secondary to sepsis -Elevated troponin secondary to renal failure and sepsis A. Does not appear to have myocardial infarction, repeat 2 more sets of troponins and repeat lactic acid again. -Her iron use and tobacco use: We will obtain hepatitis panel
[2018-05-10] MEDS: PIPERACILLIN-TAZOBACTAM 3.375 GM in DEXTROSE/WATER 1 50ML.BAG IVPB SCH (18:25)
[2018-05-10] MEDS ORDERED: ASPIRIN 81 MG PO STA (18:59)
[2018-05-10] MEDS: CHLORHEXIDINE GLUCONATE 15 ML CUP MUCOUS MEM SCH (20:18)
[2018-05-11] MEDS: PIPERACILLIN-TAZOBACTAM 3.375 GM in DEXTROSE/WATER 1 50ML.BAG IVPB SCH ×2 (00:05→09:37)
[2018-05-11] MEDS: PROPOFOL 1,000 MG in EMPTY BAG 1 BAG IV SCH ×2 (00:31→03:32)
[2018-05-11] MEDS: IPRATROPIUM-ALBUTEROL 3 ML NEB INHALATION SCH ×3 (04:03→12:41)
[2018-05-11 04:26] LABS: Hepatitis A Antibody IgM Non-Reactive (Non-Reactive); Hepatitis B Core IgM Non-Reactive (Non-Reactive)
[2018-05-11] MEDS: SODIUM CHLORIDE 0.9% 1,000 ML IV SCH (05:14)
[2018-05-11 06:23] LABS: ABG Base Excess 4.8 mmol/L; ABG HCO3 28 mmol/L (21-25); ABG PCO2 36 mmHg (35-45); ABG PO2 168 mmHg (83-108); ABG TCO2 29 mmol/L (19-24)
--- NOTE | 2018-05-11 06:30 | P.CRDCN ---
History of Present Illness Consult date: 05/11/18 Chief complaint: Change in mental status History of present illness: This is a 27-year-old gentleman who I requested to see for further cardiac evaluation of abnormal cardiac enzymes. Currently the patient is intubated and he is on ventilator. The history was taken from the chart as well as from the nurse taking care of the patient. Obviously the patient was found unresponsive at home for unknown duration. Because of that he was brought by his family to the emergency room. In the emergency room the patient was tachypneic and he was hypoxic and he was intubated to protect the airway. The chest x-ray subsequently revealed what it seems to be aspiration pneumonia. Also the patient was found to be positive for heroine. He is known to to be heroine user in the past. No indication of any cardiac history. No other risk factors like diabetes or hypertension or dyslipidemia. We get involved in the care of the patient because her cardiac enzymes were checked and came in to be slightly abnormal. No indication of any chest pain or chest discomfort. The EKG revealed sinus rhythm with early repolarization. The cardiac enzymes are slightly elevated. The chest x-ray as described above showed possible aspiration pneumonia. The computed tomography scan of the brain did not show any acute abnormalities. Currently the patient is intubated and he is on ventilator. He is responsive. He is hemodynamically stable and as a matter of fact he is slightly tachycardic with a resting heart rate around 100. The blood pressure has been stable and he is not requiring any vasopressors. I would consider a conservative medical approach for the mildly abnormal cardiac enzymes. I am going to add aspirin, add small dose of metoprolol, and obtain an echocardiogram to assess for the ejection fraction and for any wall motion abnormalities concerning for ischemia. We'll continue close follow-up with the patient. Past Medical History Additional Past Medical History / Comment(s): migraines History of Any Multi-Drug Resistant Organisms: None Reported Past Surgical History: No Surgical Hx Reported Additional Past Anesthesia/Blood Transfusion Reaction / Comment(s): Pt has never had surgery. Smoking Status: Current every day smoker - Past Family History Father Family Medical History: No Reported History Additional Family Medical History / Comment(s): Father is healthy Mother Family Medical History: No Reported History Additional Family Medical History / Comment(s): Mother is healthy. Medications and Allergies Home Medications Medication Instructions Recorded Confirmed Type Buprenorphine HCl/Naloxone HCl 1 film SUBLINGUAL BID 05/09/18 05/10/18 History [Suboxone 8 mg-2 mg Sl Film] Allergies Allergy/AdvReac Type Severity Reaction Status Date / Time No Known Allergies Allergy Verified 05/10/18 09:43 Physical Exam Vitals: Vital Signs Temp Pulse Resp BP Pulse Ox 05/11/18 05:00 98 18 120/81 100 05/11/18 04:30 96 18 126/73 100 05/11/18 04:21 92 05/11/18 04:03 94 05/11/18 04:00 99.1 F 91 18 114/82 100 05/11/18 03:30 88 18 99/63 100 05/11/18 03:00 87 18 102/67 97 05/11/18 02:44 100 05/11/18 02:30 92 18 113/75 99 05/11/18 02:00 90 18 103/64 100 05/11/18 01:30 93 18 102/68 97 05/11/18 01:00 89 18 105/68 99 05/11/18 00:30 91 18 107/69 99 05/11/18 00:00 99.1 F 92 18 111/76 100 05/10/18 23:59 92 05/10/18 23:46 92 05/10/18 23:30 95 18 98/62 100 05/10/18 23:18 93 18 98/62 98 05/10/18 23:00 96 18 98/66 98 05/10/18 22:30 94 18 102/67 98 05/10/18 22:00 97 18 102/67 98 05/10/18 21:30 98 18 105/74 98 05/10/18 21:00 99 18 110/75 99 05/10/18 20:30 93 18 104/68 100 05/10/18 20:25 92 05/10/18 20:00 99 20 98/62 99 05/10/18 19:30 101 H 18 99/64 98 05/10/18 19:00 102 H 18 103/64 98 05/10/18 18:30 103 H 18 100/72 99 05/10/18 18:00 104 H 18 108/66 98 05/10/18 17:30 104 H 18 103/67 98 05/10/18 17:00 109 H 18 103/75 98 05/10/18 16:32 102 H 05/10/18 16:30 111 H 18 110/65 98 05/10/18 16:18 110 H 05/10/18 16:00 101.8 F H 111 H 18 114/71 99 05/10/18 15:30 111/71 05/10/18 15:13 96.8 F L 05/10/18 15:00 113 H 18 101/59 05/10/18 14:40 112 H 18 105/43 05/10/18 14:20 112 H 18 97/61 05/10/18 14:00 113 H 18 104/71 05/10/18 13:40 112 H 18 95/62 99 05/10/18 13:20 113 H 18 92/55 95 05/10/18 12:40 95/48 05/10/18 12:20 122 H 20 93/50 05/10/18 12:00 125 H 20 112/47 05/10/18 11:40 128 H 19 113/69 100 05/10/18 11:30 131 H 22 96/75 100 05/10/18 11:20 135 H 24 126/86 05/10/18 11:10 141 H 43 H 98 05/10/18 10:20 97.0 F L 140 H 38 H 130/69 90 L Intake and Output 05/10/18 05/10/18 05/11/18 14:59 22:59 06:59 Intake Total 5 990 930.994 Output Total 584 942 7920 Balance -295 55 -129.006 Intake: IV 890 770 Piperacillin-Tazobactam 3 50 50 .375 gm In Dextrose/Water 1 50ml.bag @ 12.5 mls/hr IVPB Q8HR [facility] Rx#: [id number] Sodium Chloride 0.9% 1, 840 720 000 ml @ 120 mls/hr IV . Q8H20M [facility] Rx#:[id number] Intake, IV Titration 5 160.994 Amount Propofol 1,000 mg In 5 Empty Bag 1 bag @ Per Protocol IV .Q0M ONE Rx#: [id number] Propofol 1,000 mg In 160.994 Empty Bag 1 bag @ Titrate IV .Q0M [facility] Rx#: [id number] Other 100 Output: Urine 166 [id number] 8998 Uretheral ([place]) 300 Oral Regurgitation 100 Other: Voiding Method Indwelling Catheter Indwelling Catheter Weight 101 kg 106.095 kg - Constitutional General appearance: no acute distress - Respiratory Respiratory: bilateral: CTA - Cardiovascular Rhythm: regular Heart sounds: normal: S1, S2 Results 05/10/18 11:25 05/10/18 11:25 Cardiac Enzymes 05/10/18 05/10/18 05/10/18 Range/Units 11:25 11:25 17:27 AST 59 (17-59) U/L CK-MB (CK-2) 2.1 (0.0-2.4) ng/mL Troponin I 0.260 H* 0.695 H* (0.000-0.034) ng/mL 05/10/18 Range/Units 23:19 AST (17-59) U/L CK-MB (CK-2) (0.0-2.4) ng/mL Troponin I 0.870 H* (0.000-0.034) ng/mL Coagulation 05/10/18 Range/Units 11:25 PT 11.9 (9.0-12.0) sec CBC 05/10/18 Range/Units 11:25 WBC 15.8 H (3.8-10.6) k/uL RBC 5.09 (4.30-5.90) m/uL Hgb 15.4 (13.0-17.5) gm/dL Hct 45.9 (39.0-53.0) % Plt Count 248 (150-450) k/uL Comprehensive Metabolic Panel 05/10/18 Range/Units 11:25 Sodium 142 (137-145) mmol/L Potassium 4.2 (3.5-5.1) mmol/L Chloride 108 H (98-107) mmol/L Carbon Dioxide 20 L (22-30) mmol/L BUN 17 (9-20) mg/dL Creatinine 1.29 H (0.66-1.25) mg/dL Glucose 107 H (74-99) mg/dL Calcium 8.6 (8.4-10.2) mg/dL Unconjugated Bilirubin 0.4 (0.0-1.1) mg/dL AST 59 (17-59) U/L ALT 63 (21-72) U/L Alkaline Phosphatase 49 (38-126) U/L Total Protein 6.6 (6.3-8.2) g/dL Albumin 3.5 (3.5-5.0) g/dL Current Medications Generic Name Dose Route Start Last Admin Trade Name Freq PRN Reason Stop Dose Admin Acetaminophen 650 mg 05/10/18 16:54 05/10/18 18:18 Tylenol Tab PO 650 mg Q4HR PRN Administration Fever and/ or Pain Albuterol/Ipratropium 3 ml 05/10/18 16:00 05/11/18 04:03 Duoneb 0.5 Mg-3 Mg/3 Ml Soln INHALATION 3 ml RT-Q4H SARAH Administration Albuterol/Ipratropium 3 ml 05/10/18 12:22 Duoneb 0.5 Mg-3 Mg/3 Ml Soln INHALATION RT-Q2H PRN Shortness Of Breath Or Wheezing Chlorhexidine Gluconate 15 ml 05/10/18 21:00 05/10/18 20:18 Peridex MUCOUS MEM 15 ml BID SARAH Administration Enoxaparin Sodium 40 mg 05/11/18 09:00 Lovenox SQ DAILY SARAH Sodium Chloride 1,000 mls @ 120 mls/hr 05/10/18 12:15 05/11/18 05:14 Saline 0.9% IV 120 mls/hr .Q8H20M SARAH Administration Piperacillin/Tazobactam/ 50 mls @ 12.5 mls/hr 05/10/18 16:00 05/11/18 00:05 Dextrose 3.375 gm/ IV Solution IVPB 12.5 mls/hr Q8HR SARAH Administration Propofol 1,000 mg/ IV Solution 100 mls @ 0 mls/hr 05/10/18 14:00 05/11/18 03: 32 IV 30 mcg/kg/min .Q0M SARAH 18.18 mls/hr Administration Protocol Titrate Naloxone HCl 0.2 mg 05/10/18 12:03 Narcan IV Q2M PRN Opioid Reversal Pantoprazole Sodium 40 mg 05/11/18 09:00 Protonix IVP DAILY SARAH Intake and Output 05/10/18 05/10/18 05/11/18 14:59 22:59 06:59 Intake Total 5 990 930.994 Output Total 287 488 1535 Balance -295 55 -129.006 Intake: IV 890 770 Piperacillin-Tazobactam 3 50 50 .375 gm In Dextrose/Water 1 50ml.bag @ 12.5 mls/hr IVPB Q8HR [facility] Rx#: [id number] Sodium Chloride 0.9% 1, 840 720 000 ml @ 120 mls/hr IV . Q8H20M [facility] Rx#:[id number] Intake, IV Titration 5 160.994 Amount Propofol 1,000 mg In 5 Empty Bag 1 bag @ Per Protocol IV .Q0M [facility] Rx#: [id number] Propofol 1,000 mg In 160.994 Empty Bag 1 bag @ Titrate IV .Q0M [facility] Rx#: [id number] Other 100 Output: Urine [phone] Uretheral ([place]) 300 Oral Regurgitation 100 Other: Voiding Method Indwelling Catheter Indwelling Catheter Weight 101 kg 106.095 kg Patient Weight 05/11/18 06:59 Weight 106.095 kg 05/10/18 11:25 05/10/18 11:25 Assessment and Plan Assessment: Assessment #1 acute hypoxic respiratory failure #2 drug abuse. #3 mildly abnormal cardiac enzymes #4 aspiration pneumonia Plan #1 consider conservative medical approach for the mildly abnormal cardiac enzymes #2 I am going to add a small dose of metoprolol to the current medical regimen #3 add aspirin to the current medical regimen #4 obtain an echocardiogram was Doppler #5 follow-up with the patient. Thank you for allowing us participate in his care
--- NOTE | 2018-05-11 06:34 | XR ---
EXAMINATION TYPE: XR chest 1V DATE OF EXAM: 05/11/2018 CLINICAL HISTORY: Difficulty breathing progress study. TECHNIQUE: Single AP portable semiupright view of the chest is obtained. COMPARISON: Chest x-ray from one day earlier and older studies FINDINGS: There is stable appearing endotracheal and orogastric tubes. There is improved aeration ri ght upper lung and left basilar region on current study. No new focal airspace opacity or pneumothora x is seen bilaterally. Subtle blunting left lateral costophrenic angle could reflect new small to tin y pleural effusion. Cardiac silhouette size is stable and upper limits of normal. Osseous structures are intact. IMPRESSION: Interval resolution of right apical opacity. Improving left basilar infiltrate and/or ate lectasis. No new infiltrate is seen.
[2018-05-11 06:42] LABS: Basophils % (A) 0 %; Eosinophils # (A) 0.1 k/uL (0-0.7); Eosinophils % (A) 1 %; HCT 37.9 % (39.0-53.0); HGB 12.6 gm/dL (13.0-17.5); Lymphocytes # (A) 1.3 k/uL (1.0-4.8); Lymphocytes % (A) 15 %; MCH 29.3 pg (25.0-35.0); MCHC 33.1 g/dL (31.0-37.0); MCV 88.3 fL (80.0-100.0); Mean Platelet Volume 7.7; Monocytes # (A) 0.5 k/uL (0-1.0); Monocytes % (A) 6 %; Neutrophils # (A) 6.6 k/uL (1.3-7.7); Neutrophils % (A) 77 %; Platelet Count 177 k/uL (150-450); RBC 4.29 m/uL (4.30-5.90); RDW 13.8 % (11.5-15.5); WBC 8.6 k/uL (3.8-10.6)
[2018-05-11 06:44] LABS: ALT 62 U/L (21-72); AST 70 U/L (17-59); Albumin 2.8 g/dL (3.5-5.0); Alkaline Phosphatase 38 U/L (38-126); Anion Gap 7 mmol/L; Blood Urea Nitrogen 12 mg/dL (9-20); Calcium 8.5 mg/dL (8.4-10.2); Carbon Dioxide 25 mmol/L (22-30); Chloride 111 mmol/L (98-107); Glucose 90 mg/dL (74-99); Magnesium 1.8 mg/dL (1.6-2.3); Phosphorus 2.3 mg/dL (2.5-4.5); Potassium 3.6 mmol/L (3.5-5.1); Sodium 143 mmol/L (137-145); Total Bilirubin 0.8 mg/dL (0.2-1.3); Total Protein 5.6 g/dL (6.3-8.2)
[2018-05-11] MEDS ORDERED: Potassium Replacement Protocol 1 EACH MISC MISCELLANE PRN (07:13)
[2018-05-11] MEDS ORDERED: Magnesium Replacement Protocol 1 EACH MISC MISCELLANE PRN (07:21)
[2018-05-11] MEDS: MAGNESIUM SULFATE-D5W PMX 1 GM in DEXTROSE/WATER 1 100ML.BAG IVPB SCH ×2 (07:37→10:33)
[2018-05-11] MEDS ORDERED: POTASSIUM BICARBONATE/CIT AC 20 MEQ TABLET.EFF NG-TUBE SCH (08:00)
--- NOTE | 2018-05-11 08:29 | P.PN ---
Subjective Progress Note Date: 05/11/18 Principal diagnosis: Respiratory failure, overdose Progress note dated 05/11/2018 This is a 27-year-old male we saw the emergency room yesterday for an overdose. His drug screen was negative save for that benzodiazepines. He apparently been in the emergency room a couple days in a row. Anyway, yesterday's chest x- ray looks bad with a right upper lobe process and right upper lobe collapse as well as infiltrate in the left lower lobe. Today's chest x-ray was essentially normal. Microbiology thus far is negative. He remains on the ventilator on the volume assist control mode rate of 18, tidal volume 600, FiO2 35%, PEEP of 5. Arterial blood gases show a PaO2 of 168 PaCO2 of 36 and a pH 7.5. These blood gases were done on 60%. He is on a saline IV at 1 20 mL an hour and propofol at 30 mics per kilogram per minute. Tube feeds have not yet been started. His chest x-ray is normal. His white count was 8.6, he will 12.6, hematocrit 37.9 and platelet count 177,000. In addition, sodium 143 potassium 3.6 chloride 111 CO2 25 BUN 12 and creatinine 0.77. The patient is going to be evaluated today for a spontaneous breathing trial and may benefit from extubation if his numbers look good. A full set of Primus will include a tidal volume, a vital capacity, negative inspiratory force, minute ventilation, respiratory rate, rapid shallow breathing index and a cuff leak test. Objective - Vital Signs Vital signs: Vital Signs Temp 99.1 F 05/11/18 04:00 Pulse 116 H 05/11/18 08:04 Resp 18 05/11/18 07:00 BP 118/77 05/11/18 07:00 Pulse Ox 99 05/11/18 07:00 Intake & Output 05/10/18 05/11/18 05/11/18 18:59 06:59 18:59 Intake Total 365 1680.994 120 Output Total 435 1960 600 Balance -70 -279.006 -480 Weight 101 kg 106.095 kg Intake: IV 360 1420 120 Piperacillin-Tazobactam 3 100 .375 gm In Dextrose/Water 1 50ml.bag @ 12.5 mls/hr IVPB Q8HR [facility] Rx#: [id number] Sodium Chloride 0.9% 1, 360 1320 120 000 ml @ 120 mls/hr IV . Q8H20M [facility] Rx#:[id number] Intake, IV Titration 5 160.994 Amount Propofol 1,000 mg In 5 Empty Bag 1 bag @ Per Protocol IV .Q0M ONE Rx#: [id number] Propofol 1,000 mg In 160.994 Empty Bag 1 bag @ Titrate IV .Q0M [facility] Rx#: [id number] Other 100 Output: Gastric Drainage 500 Urine 435 1860 100 Uretheral ([place]) 300 Oral Regurgitation 100 Other: Voiding Method Indwelling Catheter Indwelling Catheter - Exam No acute distress, sedated, with an orally placed endotracheal tube and NG tube HEENT examination is grossly unremarkable. Mucous membranes are moist. No oral lesions. Neck supple. Full range of motion. No adenopathy thyromegaly or neck vein distention. Cardiovascular examination reveals regular rhythm rate. S1-S2 normal. No S3 or S4. No discernible murmur noted. Lungs reveal mostly clear breath sounds. A few scattered rhonchi. No wheezes or crackles. Abdomen soft bowel sounds are heard. No masses or tenderness. Extremities are intact. No cyanosis clubbing or edema. Skin is without rash or lesion. Neurologic examination could not be adequately assessed as the patient is currently sedated. - Labs CBC & Chem 7: 05/11/18 06:09 05/11/18 06:09 Labs: Abnormal Lab Results - Last 24 Hours (Table) 05/10/18 05/10/18 05/10/18 Range/Units 10:51 11:25 11:25 WBC 15.8 H (3.8-10.6) k/uL RBC (4.30-5.90) m/uL Hgb (13.0-17.5) gm/dL Hct (39.0-53.0) % Neutrophils # (Manual) 14.00 H (1.3-7.7) k/uL Lymphocytes # (Manual) 0.47 L (1.0-4.8) k/uL Monocytes # (Manual) 1.26 H (0-1.0) k/uL INR 1.2 H (<1.2) ABG pH 7.30 L (7.35-7.45) ABG pCO2 50 H (35-45) mmHg ABG pO2 132 H (83-108) mmHg ABG HCO3 (21-25) mmol/L ABG Total CO2 26 H (19-24) mmol/L ABG O2 Saturation 99.3 H (94-97) % Chloride (98-107) mmol/L Carbon Dioxide (22-30) mmol/L Creatinine (0.66-1.25) mg/dL Glucose (74-99) mg/dL POC Glucose (mg/dL) (75-99) mg/dL Plasma Lactic Acid Renan (0.7-2.0) mmol/L Phosphorus (2.5-4.5) mg/dL Delta Bilirubin (0.0-0.2) mg/dL AST (17-59) U/L Troponin I (0.000-0.034) ng/mL Total Protein (6.3-8.2) g/dL Albumin (3.5-5.0) g/dL Lipase (23-300) U/L Urine Protein (Negative) Urine Ketones (Negative) Hyaline Casts (0-2) /lpf Urine Mucus (None) /hpf U Benzodiazepines Scrn (NotDetected) Hep C IgG Ab (Non-Reactive) 05/10/18 05/10/18 05/10/18 Range/Units 11:25 11:25 11:25 WBC (3.8-10.6) k/uL RBC (4.30-5.90) m/uL Hgb (13.0-17.5) gm/dL Hct (39.0-53.0) % Neutrophils # (Manual) (1.3-7.7) k/uL Lymphocytes # (Manual) (1.0-4.8) k/uL Monocytes # (Manual) (0-1.0) k/uL INR (<1.2) ABG pH (7.35-7.45) ABG pCO2 (35-45) mmHg ABG pO2 (83-108) mmHg ABG HCO3 (21-25) mmol/L ABG Total CO2 (19-24) mmol/L ABG O2 Saturation (94-97) % Chloride 108 H (98-107) mmol/L Carbon Dioxide 20 L (22-30) mmol/L Creatinine 1.29 H (0.66-1.25) mg/dL Glucose 107 H (74-99) mg/dL POC Glucose (mg/dL) (75-99) mg/dL Plasma Lactic Acid Renan 6.3 H* (0.7-2.0) mmol/L Phosphorus (2.5-4.5) mg/dL Delta Bilirubin 0.4 H (0.0-0.2) mg/dL AST (17-59) U/L Troponin I 0.260 H* (0.000-0.034) ng/mL Total Protein (6.3-8.2) g/dL Albumin (3.5-5.0) g/dL Lipase 20 L (23-300) U/L Urine Protein (Negative) Urine Ketones (Negative) Hyaline Casts (0-2) /lpf Urine Mucus (None) /hpf U Benzodiazepines Scrn (NotDetected) Hep C IgG Ab (Non-Reactive) 05/10/18 05/10/18 05/10/18 Range/Units 11:25 11:41 11:41 WBC (3.8-10.6) k/uL RBC (4.30-5.90) m/uL Hgb (13.0-17.5) gm/dL Hct (39.0-53.0) % Neutrophils # (Manual) (1.3-7.7) k/uL Lymphocytes # (Manual) (1.0-4.8) k/uL Monocytes # (Manual) (0-1.0) k/uL INR (<1.2) ABG pH (7.35-7.45) ABG pCO2 (35-45) mmHg ABG pO2 (83-108) mmHg ABG HCO3 (21-25) mmol/L ABG Total CO2 (19-24) mmol/L ABG O2 Saturation (94-97) % Chloride (98-107) mmol/L Carbon Dioxide (22-30) mmol/L Creatinine (0.66-1.25) mg/dL Glucose (74-99) mg/dL POC Glucose (mg/dL) (75-99) mg/dL Plasma Lactic Acid Renan (0.7-2.0) mmol/L Phosphorus (2.5-4.5) mg/dL Delta Bilirubin (0.0-0.2) mg/dL AST (17-59) U/L Troponin I (0.000-0.034) ng/mL Total Protein (6.3-8.2) g/dL Albumin (3.5-5.0) g/dL Lipase (23-300) U/L Urine Protein 1+ H (Negative) Urine Ketones 1+ H (Negative) Hyaline Casts 15 H (0-2) /lpf Urine Mucus Rare H (None) /hpf U Benzodiazepines Scrn Detected H (NotDetected) Hep C IgG Ab Reactive H (Non-Reactive) 05/10/18 05/10/18 05/10/18 Range/Units 15:52 16:15 17:27 WBC (3.8-10.6) k/uL RBC (4.30-5.90) m/uL Hgb (13.0-17.5) gm/dL Hct (39.0-53.0) % Neutrophils # (Manual) (1.3-7.7) k/uL Lymphocytes # (Manual) (1.0-4.8) k/uL Monocytes # (Manual) (0-1.0) k/uL INR (<1.2) ABG pH (7.35-7.45) ABG pCO2 (35-45) mmHg ABG pO2 (83-108) mmHg ABG HCO3 (21-25) mmol/L ABG Total CO2 (19-24) mmol/L ABG O2 Saturation (94-97) % Chloride (98-107) mmol/L Carbon Dioxide (22-30) mmol/L Creatinine (0.66-1.25) mg/dL Glucose (74-99) mg/dL POC Glucose (mg/dL) 113 H (75-99) mg/dL Plasma Lactic Acid Renan 2.7 H* (0.7-2.0) mmol/L Phosphorus (2.5-4.5) mg/dL Delta Bilirubin (0.0-0.2) mg/dL AST (17-59) U/L Troponin I 0.695 H* (0.000-0.034) ng/mL Total Protein (6.3-8.2) g/dL Albumin (3.5-5.0) g/dL Lipase (23-300) U/L Urine Protein (Negative) Urine Ketones (Negative) Hyaline Casts (0-2) /lpf Urine Mucus (None) /hpf U Benzodiazepines Scrn (NotDetected) Hep C IgG Ab (Non-Reactive) 05/10/18 05/11/18 05/11/18 Range/Units 23:19 06:09 06:09 WBC (3.8-10.6) k/uL RBC 4.29 L (4.30-5.90) m/uL Hgb 12.6 L (13.0-17.5) gm/dL Hct 37.9 L (39.0-53.0) % Neutrophils # (Manual) (1.3-7.7) k/uL Lymphocytes # (Manual) (1.0-4.8) k/uL Monocytes # (Manual) (0-1.0) k/uL INR (<1.2) ABG pH (7.35-7.45) ABG pCO2 (35-45) mmHg ABG pO2 (83-108) mmHg ABG HCO3 (21-25) mmol/L ABG Total CO2 (19-24) mmol/L ABG O2 Saturation (94-97) % Chloride 111 H (98-107) mmol/L Carbon Dioxide (22-30) mmol/L Creatinine (0.66-1.25) mg/dL Glucose (74-99) mg/dL POC Glucose (mg/dL) (75-99) mg/dL Plasma Lactic Acid Renan (0.7-2.0) mmol/L Phosphorus 2.3 L (2.5-4.5) mg/dL Delta Bilirubin (0.0-0.2) mg/dL AST 70 H (17-59) U/L Troponin I 0.870 H* (0.000-0.034) ng/mL Total Protein 5.6 L (6.3-8.2) g/dL Albumin 2.8 L (3.5-5.0) g/dL Lipase (23-300) U/L Urine Protein (Negative) Urine Ketones (Negative) Hyaline Casts (0-2) /lpf Urine Mucus (None) /hpf U Benzodiazepines Scrn (NotDetected) Hep C IgG Ab (Non-Reactive) 05/11/18 Range/Units 06:20 WBC (3.8-10.6) k/uL RBC (4.30-5.90) m/uL Hgb (13.0-17.5) gm/dL Hct (39.0-53.0) % Neutrophils # (Manual) (1.3-7.7) k/uL Lymphocytes # (Manual) (1.0-4.8) k/uL Monocytes # (Manual) (0-1.0) k/uL INR (<1.2) ABG pH 7.50 H (7.35-7.45) ABG pCO2 (35-45) mmHg ABG pO2 168 H (83-108) mmHg ABG HCO3 28 H (21-25) mmol/L ABG Total CO2 29 H (19-24) mmol/L ABG O2 Saturation 100.0 H (94-97) % Chloride (98-107) mmol/L Carbon Dioxide (22-30) mmol/L Creatinine (0.66-1.25) mg/dL Glucose (74-99) mg/dL POC Glucose (mg/dL) (75-99) mg/dL Plasma Lactic Acid Renan (0.7-2.0) mmol/L Phosphorus (2.5-4.5) mg/dL Delta Bilirubin (0.0-0.2) mg/dL AST (17-59) U/L Troponin I (0.000-0.034) ng/mL Total Protein (6.3-8.2) g/dL Albumin (3.5-5.0) g/dL Lipase (23-300) U/L Urine Protein (Negative) Urine Ketones (Negative) Hyaline Casts (0-2) /lpf Urine Mucus (None) /hpf U Benzodiazepines Scrn (NotDetected) Hep C IgG Ab (Non-Reactive) Microbiology - Last 24 Hours (Table) 05/10/18 11:20 Gram Stain - Preliminary Sputum Sputum Culture - Preliminary Assessment and Plan Assessment: Assessment Acute hypoxemic respiratory failure requiring intubation and mechanical ventilation on May 10 secondary to drug overdose Suspected heroin overdose with acute hypoxemic respiratory failure, complicated by gastric acid aspiration and diffuse bilateral infiltrates. History of prior drug overdose with narcotics most recently yesterday and then back in March of this year. History of insomnia History of ongoing tobacco use Plan: Plan dated 05/10/2018 Chest x-rays evaluated in the emergency department. He has a right upper lobe infiltrate with some right upper lobe collapse as well as a left lower lobe infiltrate. Likely the patient had significant gastric acid aspiration. White count is 15.8 hemoglobin 15.4 hematocrit 45.9 and platelet count is 248,000. Blood gases show a PaO2 of 132 a PaCO2 of 50 and a pH of 7.30. This was 100%. Sodium 142 potassium 4.2 chloride is 108 CO2 20 anion gap 14 BUN and creatinine were 17 and 1.29. Lactic acid was 6.3. X-rays labs and medications are all reviewed. I review the time in the emergency department talking the patient's father and mother. They understand the seriousness of this problem. This was an ICU bed opens up, we'll move the patient to the intensive care unit. He may need a central line and arterial line. Additional recommendations and suggestions are forthcoming. Prognosis is guarded. Critical care time 35 minutes Plan dated 05/11/2018 The patient will have weaning parameters performed and possibly end up with a spontaneous breathing trial and extubation. The patient's currently on saline at 120 mL an hour and propofol at 30 mics per kilogram per minute. This will be turned out. His labs were reviewed. Everything looks pretty good. His chest x-rays now normal. His microbiology is negative. His overall prognosis remains very guarded given the fact that he's had multiple drug overdoses including twice this past 3 or 4 days and also once in March. Labs x-rays a medications are all reviewed. Unnecessary medications will be discontinued. The patient could be transferred out of the ICU after 6 hours. We will avoid rebound post extubation stridor which seems to occur one hour post extubation and 6 hours post extubation. Critical care time 34 minutes Time with Patient: Greater than 30
[2018-05-11] MEDS ORDERED: ENOXAPARIN 40 MG/0.4 ML SYRINGE SQ SCH (09:00)
[2018-05-11] MEDS ORDERED: METOPROLOL TARTRATE 12.5 MG TAB PO SCH (09:00)
[2018-05-11] MEDS ORDERED: PANTOPRAZOLE 40 MG/10 ML VIAL IVP SCH (09:00)
[2018-05-11] MEDS: ASPIRIN 81 MG PO SCH ×2 (09:25→09:37)
[2018-05-11] MEDS: CHLORHEXIDINE GLUCONATE 15 ML CUP MUCOUS MEM SCH (09:37)
[2018-05-11 10:30] VITALS: BP 119/76; PULSE 111; TEMP 98.4
--- NOTE | 2018-05-11 13:19 | ECHOF ---
Referral Reason:nstemi MEASUREMENTS -------- HEIGHT: 182.9 cm WEIGHT: 105.7 kg BP: 114/73 RVIDd: 3.8 cm (< 3.3) IVSd: 1.2 cm (0.6 - 1.1) LVIDd: 4.2 cm (3.9 - 5.3) LVPWd: 1.6 cm (0.6 - 1.1) IVSs: 2.1 cm LVIDs: 2.2 cm LVPWs: 1.7 cm Ao Diam: 3.1 cm (2.0 - 3.7) AV Cusp: 1.5 cm (1.5 - 2.6) LA Diam: 2.7 cm (2.7 - 3.8) MV EXCURSION: 22.213 mm (> 18.000) MV EF SLOPE: 119 mm/s (70 - 150) EPSS: 1.0 cm MV E Ubaldo: 0.67 m/s MV DecT: 199 ms MV A Ubaldo: 0.51 m/s MV E/A Ratio: 1.31 RAP: 5.00 mmHg RVSP: 11.33 mmHg FINDINGS -------- Sinus rhythm. This was a technically difficult study with suboptimal views. The left ventricular size is normal. There is mild concentric left ventricular hypertrophy. Overa ll left ventricular systolic function is low-normal with, an EF between 50 - 55 %. The right ventricle is mild to moderately enlarged. The left atrium is normal in size. The right atrium is normal in size. Lumason used The aortic valve is trileaflet, and appears structurally normal. No aortic stenosis or regurgitation. There is trace mitral regurgitation. Trace tricuspid regurgitation present. The right ventricular systolic pressure, as measured by Dopp ler, is 11.33mmHg. Pulmonic valve appears structurally normal. The aortic root size is normal. Normal inferior vena cava with normal inspiratory collapse consistent with estimated right atrial pre ssure of 5 mmHg. The pericardium is normal. CONCLUSIONS -------- 1. Sinus rhythm. 2. This was a technically difficult study with suboptimal views. 3. The left ventricular size is normal. 4. There is mild concentric left ventricular hypertrophy. 5. Overall left ventricular systolic function is low-normal with, an EF between 50 - 55 %. 6. The right ventricle is mild to moderately enlarged. 7. The left atrium is normal in size. 8. The right atrium is normal in size. 9. Lumason used 10. The aortic valve is trileaflet, and appears structurally normal. No aortic stenosis or regurgitat ion. 11. There is trace mitral regurgitation. 12. Trace tricuspid regurgitation present. 13. The right ventricular systolic pressure, as measured by Doppler, is 11.33mmHg. 14. Pulmonic valve appears structurally normal. 15. The aortic root size is normal. 16. Normal inferior vena cava with normal inspiratory collapse consistent with estimated right atrial pressure of 5 mmHg. 17. The pericardium is normal. DROSSER: Sarah Martinez RDCS
== END 2018-05-11 14:09 | disposition left against medical advice (07) | DRG 917 ==
LOC: EC 09:38 → 2SICU 12:05
PROVIDERS: ADMIT Internal Medicine; ATTEND Internal Medicine
PROC: 5A1935Z Respiratory Ventilation, Less than 24 Consecutive Hours (ICD-10-PCS; principal; 2018-05-10)
PROC: 0BH18EZ Insertion of Endotracheal Airway into Trachea, Via Natural or Artificial Opening Endoscopic (ICD-10-PCS; principal; 2018-05-10)
DX: T40.1X1A Poisoning by heroin, accidental (unintentional), initial encounter (principal); J96.02 Acute respiratory failure with hypercapnia; A41.9 Sepsis, unspecified organism; J69.0 Pneumonitis due to inhalation of food and vomit; J96.01 Acute respiratory failure with hypoxia; E87.2 Acidosis; J98.19 Other pulmonary collapse; N17.9 Acute kidney failure, unspecified; F17.200 Nicotine dependence, unspecified, uncomplicated
CPT/HCPCS: 31500; 36415; 36600; 51702; 70450; 71045; 80053; 80074; 80306; 80320; 81001; 82248; 82550; 82553; 82805; 83520; 83605; 83690; 83735; 84100; 84484; 85025; 85610; 87040; 87070; 87205; 93005; 93306; 94002; 94640; 96361; 96374; 99291

== ENCOUNTER 2018-05-11 14:33 | Observation (INO) | payer OTHER ==
[2018-05-11] MEDS ORDERED: IBUPROFEN 600 MG TAB PO STA (14:55)
[2018-05-11] MEDS ORDERED: ACETAMINOPHEN TAB 500 MG TAB PO STA (14:55)
[2018-05-11] MEDS ORDERED: IPRATROPIUM-ALBUTEROL 3 ML NEB INHALATION STA (14:57)
[2018-05-11] MEDS ORDERED: PIPERACILLIN-TAZOBACTAM 3.375 GM in DEXTROSE/WATER 1 50ML.BAG IVPB STA (15:00)
--- NOTE | 2018-05-11 15:01 | ED ---
General Adult HPI - General Chief complaint: Psychiatric Symptoms Stated complaint: mental health Time Seen by Provider: 05/11/18 14:39 Source: patient, police, EMS, RN notes reviewed, old records reviewed Mode of arrival: EMS Limitations: no limitations - History of Present Illness Initial comments: Patient is a 27-year-old male with history of heroin abuse, presents or urgency department today when she went suicidal ideation. Patient was petitioned by police. EMS brought the Patient here. Patient was seen in the emergency department yesterday for heroin overdose. He subsequently developed aspiration pneumonia. He was extubated this morning and then quickly signed out AMA. Patient states that when he went home he took NyQuil. He reports he is not feeling well and felt like he needed to come here again. He reports no drug use between the initial overdose yesterday and today. - Related Data Home Medications Medication Instructions Recorded Confirmed Buprenorphine HCl/Naloxone HCl 1 film SUBLINGUAL BID 05/09/18 05/11/18 [Suboxone 8 mg-2 mg Sl Film] traZODone HCL 150 mg PO HS 05/11/18 05/11/18 Allergies Allergy/AdvReac Type Severity Reaction Status Date / Time No Known Allergies Allergy Verified 05/11/18 14:58 Review of Systems ROS Statement: Those systems with pertinent positive or pertinent negative responses have been documented in the HPI. ROS Other: All systems not noted in ROS Statement are negative. Past Medical History Additional Past Medical History / Comment(s): migraines History of Any Multi-Drug Resistant Organisms: None Reported Past Surgical History: No Surgical Hx Reported Additional Past Anesthesia/Blood Transfusion Reaction / Comment(s): Pt has never had surgery. Past Psychological History: Anxiety Smoking Status: Current every day smoker Past Alcohol Use History: None Reported Past Drug Use History: Heroin - Past Family History Father Family Medical History: No Reported History Additional Family Medical History / Comment(s): Father is healthy Mother Family Medical History: No Reported History Additional Family Medical History / Comment(s): Mother is healthy. General Exam - General Exam Comments Initial Comments: This is a 27-year-old male. Alert and oriented 3. Limitations: no limitations General appearance: alert, in no apparent distress Head exam: Present: atraumatic, normocephalic, normal inspection Eye exam: Present: normal appearance, PERRL, EOMI. Absent: scleral icterus, conjunctival injection, periorbital swelling ENT exam: Present: normal exam, mucous membranes moist Neck exam: Present: normal inspection. Absent: tenderness, meningismus, lymphadenopathy Respiratory exam: Present: normal lung sounds bilaterally. Absent: respiratory distress, wheezes, rales, rhonchi, stridor Cardiovascular Exam: Present: regular rate, normal rhythm, normal heart sounds. Absent: systolic murmur, diastolic murmur, rubs, gallop, clicks GI/Abdominal exam: Present: soft, normal bowel sounds. Absent: distended, tenderness, guarding, rebound, rigid Extremities exam: Present: normal inspection, full ROM, normal capillary refill. Absent: tenderness, pedal edema, joint swelling, calf tenderness Back exam: Present: normal inspection Neurological exam: Present: alert, oriented X3, CN II-XII intact Course Vital Signs 05/11/18 05/11/18 05/11/18 14:34 15:54 16:04 Temperature 100.5 F H Pulse Rate 118 H 110 H 112 H Respiratory 20 Rate Blood Pressure 119/73 O2 Sat by Pulse 93 L Oximetry 05/11/18 17:31 Temperature 99.2 F Pulse Rate 100 Respiratory 18 Rate Blood Pressure 120/71 O2 Sat by Pulse 93 L Oximetry Medical Decision Making - Medical Decision Making 27-year-old male present today with chief complaint of body aches fevers chills. He sign out AMA earlier today. Patient states that he went home and took NyQuil this isn't feeling well. He was recently in hospital for heroin overdose and was intubated. At this time here as a fever 101, 93% on room air. Patient was started on IV fluids and started on Zosyn. He also has a petition from police for suicidal ideations. Since that he does not feel like he will be able to live to go to get to rehab. Patient is planning to go to rehab on Wednesday. Dr. Naik and discussed the case with [facility] [place] hospitalist. Started the Patient on Zosyn. Blood culture pending. is a mildly elevated lactic acidosis time. She also has elevation of his troponin level but it is trending down from previous labs. Likely to resuscitation from yesterday. Patient was reevaluated, and states that he does not want to be admitted. I discussed that he is petitioned at this time and has to be seen by psychiatry however he is not medically clear for seeing psychiatry with an elevated troponin and bronchopneumonia. Patient will be admitted this time. The certification was completed by Dr. Rojas. - Lab Data Result diagrams: 05/11/18 15:57 05/11/18 15:57 Lab Results 05/11/18 05/11/18 05/11/18 Range/Units 15:57 15:57 15:57 WBC 8.5 (3.8-10.6) k/uL RBC 4.37 (4.30-5.90) m/uL Hgb 12.9 L (13.0-17.5) gm/dL Hct 38.3 L (39.0-53.0) % MCV 87.6 (80.0-100.0) fL MCH 29.5 (25.0-35.0) pg MCHC 33.7 (31.0-37.0) g/dL RDW 13.8 (11.5-15.5) % Plt Count 154 (150-450) k/uL Neutrophils % 73 % Lymphocytes % 19 % Monocytes % 5 % Eosinophils % 1 % Basophils % 0 % Neutrophils # 6.2 (1.3-7.7) k/uL Lymphocytes # 1.6 (1.0-4.8) k/uL Monocytes # 0.4 (0-1.0) k/uL Eosinophils # 0.1 (0-0.7) k/uL Basophils # 0.0 (0-0.2) k/uL PT (9.0-12.0) sec INR (<1.2) APTT (22.0-30.0) sec Sodium 143 (137-145) mmol/L Potassium 3.9 (3.5-5.1) mmol/L Chloride 108 H (98-107) mmol/L Carbon Dioxide 29 (22-30) mmol/L Anion Gap 6 mmol/L BUN 11 (9-20) mg/dL Creatinine 0.67 (0.66-1.25) mg/dL Est GFR (CKD-EPI)AfAm >90 (>60 ml/min/1.73 sqM) Est GFR (CKD-EPI)NonAf >90 (>60 ml/min/1.73 sqM) Glucose 100 H (74-99) mg/dL Plasma Lactic Acid Renan 2.5 H* (0.7-2.0) mmol/L Calcium 9.1 (8.4-10.2) mg/dL Total Bilirubin 0.8 (0.2-1.3) mg/dL AST 96 H (17-59) U/L ALT 63 (21-72) U/L Alkaline Phosphatase 44 (38-126) U/L Troponin I (0.000-0.034) ng/mL Total Protein 6.4 (6.3-8.2) g/dL Albumin 3.3 L (3.5-5.0) g/dL Urine Color Urine Appearance (Clear) Urine pH (5.0-8.0) Ur Specific [place] (1.001-1.035) Urine Protein (Negative) Urine Glucose (UA) (Negative) Urine Ketones (Negative) Urine Blood (Negative) Urine Nitrite (Negative) Urine Bilirubin (Negative) Urine Urobilinogen (<2.0) mg/dL Ur Leukocyte Esterase (Negative) Urine Opiates Screen (NotDetected) Ur Oxycodone Screen (NotDetected) Urine Methadone Screen (NotDetected) Ur Propoxyphene Screen (NotDetected) Ur Barbiturates Screen (NotDetected) U Tricyclic Antidepress (NotDetected) Ur Phencyclidine Scrn (NotDetected) Ur Amphetamines Screen (NotDetected) U Methamphetamines Scrn (NotDetected) U Benzodiazepines Scrn (NotDetected) Urine Cocaine Screen (NotDetected) U Marijuana (THC) Screen (NotDetected) 05/11/18 05/11/18 05/11/18 Range/Units 15:57 15:57 16:10 WBC (3.8-10.6) k/uL RBC (4.30-5.90) m/uL Hgb (13.0-17.5) gm/dL Hct (39.0-53.0) % MCV (80.0-100.0) fL MCH (25.0-35.0) pg MCHC (31.0-37.0) g/dL RDW (11.5-15.5) % Plt Count (150-450) k/uL Neutrophils % % Lymphocytes % % Monocytes % % Eosinophils % % Basophils % % Neutrophils # (1.3-7.7) k/uL Lymphocytes # (1.0-4.8) k/uL Monocytes # (0-1.0) k/uL Eosinophils # (0-0.7) k/uL Basophils # (0-0.2) k/uL PT 11.0 (9.0-12.0) sec INR 1.1 (<1.2) APTT 19.5 L (22.0-30.0) sec Sodium (137-145) mmol/L Potassium (3.5-5.1) mmol/L Chloride (98-107) mmol/L Carbon Dioxide (22-30) mmol/L Anion Gap mmol/L BUN (9-20) mg/dL Creatinine (0.66-1.25) mg/dL Est GFR (CKD-EPI)AfAm (>60 ml/min/1.73 sqM) Est GFR (CKD-EPI)NonAf (>60 ml/min/1.73 sqM) Glucose (74-99) mg/dL Plasma Lactic Acid Renan (0.7-2.0) mmol/L Calcium (8.4-10.2) mg/dL Total Bilirubin (0.2-1.3) mg/dL AST (17-59) U/L ALT (21-72) U/L Alkaline Phosphatase (38-126) U/L Troponin I 0.534 H* (0.000-0.034) ng/mL Total Protein (6.3-8.2) g/dL Albumin (3.5-5.0) g/dL Urine Color Yellow Urine Appearance Clear (Clear) Urine pH 7.5 (5.0-8.0) Ur Specific [place] 1.012 (1.001-1.035) Urine Protein Negative (Negative) Urine Glucose (UA) Negative (Negative) Urine Ketones Negative (Negative) Urine Blood Negative (Negative) Urine Nitrite Negative (Negative) Urine Bilirubin Negative (Negative) Urine Urobilinogen 4.0 (<2.0) mg/dL Ur Leukocyte Esterase Negative (Negative) Urine Opiates Screen Not Detected (NotDetected) Ur Oxycodone Screen Not Detected (NotDetected) Urine Methadone Screen Not Detected (NotDetected) Ur Propoxyphene Screen Not Detected (NotDetected) Ur Barbiturates Screen Not Detected (NotDetected) U Tricyclic Antidepress Not Detected (NotDetected) Ur Phencyclidine Scrn Not Detected (NotDetected) Ur Amphetamines Screen Not Detected (NotDetected) U Methamphetamines Scrn Detected H (NotDetected) U Benzodiazepines Scrn Detected H (NotDetected) Urine Cocaine Screen Not Detected (NotDetected) U Marijuana (THC) Screen Not Detected (NotDetected) 05/11/18 16:44 EKG shows normal sinus rhythm normal EKG noted. Ventricular rate of 100 bpm. Pulse 150 ms. QRS duration 96 most seconds. QT QTc is 350/441 ms. - Radiology Data Radiology results: report reviewed Mild interstitial prominence could represent bronchitis or asthma. No focal history changes suggest pneumonia. Disposition Clinical Impression: Bronchitis, History of heroin abuse, Suicidal ideation Disposition: ADMITTED IP TO THIS HOSP Condition: Stable Is patient prescribed a controlled substance at d/c from ED?: No Referrals: None,Stated [Primary Care Provider] - 1-2 days Time of Disposition: 16:47
[2018-05-11] MEDS: SODIUM CHLORIDE 0.9% 500 ML 500 ML IV SCH ×2 (16:02→17:34)
[2018-05-11 16:21] LABS: Basophils % (A) 0 %; Eosinophils # (A) 0.1 k/uL (0-0.7); Eosinophils % (A) 1 %; HCT 38.3 % (39.0-53.0); HGB 12.9 gm/dL (13.0-17.5); Lymphocytes # (A) 1.6 k/uL (1.0-4.8); Lymphocytes % (A) 19 %; MCH 29.5 pg (25.0-35.0); MCHC 33.7 g/dL (31.0-37.0); MCV 87.6 fL (80.0-100.0); Mean Platelet Volume 7.3; Monocytes # (A) 0.4 k/uL (0-1.0); Monocytes % (A) 5 %; Neutrophils # (A) 6.2 k/uL (1.3-7.7); Neutrophils % (A) 73 %; Platelet Count 154 k/uL (150-450); RBC 4.37 m/uL (4.30-5.90); RDW 13.8 % (11.5-15.5); WBC 8.5 k/uL (3.8-10.6)
[2018-05-11 16:29] LABS: Appearance,Urine Clear (Clear); Bilirubin,Urine Negative (Negative); Blood,Urine Negative (Negative); Color,Urine Yellow; Glucose,Urine (UA) Negative (Negative); Ketones,Urine Negative (Negative); Leukocyte Esterase,Urine Negative (Negative); Nitrite,Urine Negative (Negative); PH, Urine 7.5 (5.0-8.0); Protein,Urine Negative (Negative); Specific Gravity,Urine 1.012 (1.001-1.035)
--- NOTE | 2018-05-11 16:35 | XR ---
EXAMINATION TYPE: XR chest 2V DATE OF EXAM: 05/11/2018 COMPARISON: 05/11/2018 HISTORY: 27-year-old male with fever TECHNIQUE: AP and lateral views FINDINGS: Heart normal size. Aorta and pulmonary vasculature within normal limits. Mild interstitial prominence . No consolidation or pleural effusion. IMPRESSION: Mild interstitial prominence could represent bronchitis or asthma. No focal infiltrate to suggest pne umonia.
[2018-05-11 16:39] LABS: ALT 63 U/L (21-72); AST 96 U/L (17-59); Albumin 3.3 g/dL (3.5-5.0); Alkaline Phosphatase 44 U/L (38-126); Anion Gap 6 mmol/L; Blood Urea Nitrogen 11 mg/dL (9-20); Calcium 9.1 mg/dL (8.4-10.2); Carbon Dioxide 29 mmol/L (22-30); Chloride 108 mmol/L (98-107); Glucose 100 mg/dL (74-99); Potassium 3.9 mmol/L (3.5-5.1); Sodium 143 mmol/L (137-145); Total Bilirubin 0.8 mg/dL (0.2-1.3); Total Protein 6.4 g/dL (6.3-8.2)
[2018-05-11 16:39] LABS: Amphetamine Screen,Urine Not Detected (NotDetected); Barbiturate Screen,Urine Not Detected (NotDetected); Benzodiazepines Screen,Urine Detected (NotDetected); Cocaine Screen,Urine Not Detected (NotDetected); Methadone Screen, Urine Not Detected (NotDetected); Opiate Screen,Urine Not Detected (NotDetected); Oxycodone Screen, Urine Not Detected (NotDetected); Phencyclidine Screen,Urine Not Detected (NotDetected); Tricyclic Antidepressant,Urine Not Detected (NotDetected); Urn Cannabinoid Scrn Not Detected (NotDetected)
[2018-05-11 16:58] LABS: INR 1.1 (<1.2)
[2018-05-11 17:00] LABS: Partial Thromboplastin Time 19.5 sec (22.0-30.0)
[2018-05-11] MEDS ORDERED: NALOXONE 0.4 MG/ML 1 ML VIAL IV PRN (17:36)
[2018-05-11] MEDS ORDERED: IBUPROFEN 400 MG TAB PO PRN (17:36)
[2018-05-11] MEDS ORDERED: ONDANSETRON 4 MG/2 ML VIAL IVP PRN (17:36)
[2018-05-11] MEDS ORDERED: KETOROLAC 30 MG/ML 1 ML VIAL IVP PRN (17:36)
[2018-05-11] MEDS ORDERED: BENZOCAINE/MENTHOL LOZENG 1 EACH LOZENGE MUCOUS MEM PRN (17:36)
[2018-05-11] MEDS ORDERED: ACETAMINOPHEN TAB 325 MG TAB PO PRN (17:36)
[2018-05-11] MEDS ORDERED: LORazepam 2 MG/ML INJ IM PRN (17:41)
[2018-05-11] MEDS ORDERED: ZIPRASIDONE 20 MG VIAL IM PRN (17:41)
[2018-05-11] MEDS ORDERED: IPRATROPIUM-ALBUTEROL 3 ML NEB INHALATION SCH (17:45)
[2018-05-11] MEDS ORDERED: LORazepam 2 MG/ML INJ IV PRN ×2 (18:20→23:47)
[2018-05-11] MEDS: SODIUM CHLORIDE 0.9% 1,000 ML IV SCH (18:29)
[2018-05-11] MEDS ORDERED: LORazepam 2 MG/ML INJ IV STA (20:09)
[2018-05-11] MEDS ORDERED: IPRATROPIUM-ALBUTEROL 3 ML NEB INHALATION PRN (20:31)
[2018-05-12 01:13] VITALS: RESP 17; BMI 28.5
[2018-05-12] MEDS: PIPERACILLIN-TAZOBACTAM 3.375 GM in DEXTROSE/WATER 1 50ML.BAG IVPB SCH ×2 (01:39→11:24)
[2018-05-12] MEDS: SODIUM CHLORIDE 0.9% 1,000 ML IV SCH (06:56)
--- NOTE | 2018-05-12 09:07 | P.CRDCN ---
History of Present Illness Consult date: 05/12/18 Chief complaint: Weakness History of present illness: (A 27-year-old gentleman who just left AMA after he presented to the hospital with heroine overdose and was unresponsive at home and was diagnosed with aspiration pneumonia where the patient was intubated and subsequently extubated the following day and left the hospital a few days after extubation. He presented back to the hospital not feeling well where he was experiencing suicidal ideation. We get involved in his care because of mildly abnormal cardiac enzymes was mildly abnormal troponin. The patient denies having any chest pain or discomfort or shortness of breath or dizziness or lightheadedness. He's feeling overall weak. He is a smoker and smoked one pack per day at least for the last several years. No other comorbidities like diabetes or hypertension or dyslipidemia. No significant family history of coronary artery disease. Beside the abnormal cardiac enzymes the EKG is also abnormal and showing ST changes seems to be nonspecific in the anteroseptal leads. He is tachycardic when the EKG was performed. I did have a long discussion with him and his father in the room regarding the abnormal cardiac enzymes which could reflect severe underlying coronary artery disease and the need to proceed with a heart catheterization or at least a stress test to rule out any severe underlying CAD behind the abnormal cardiac enzymes getting his risk factor which is a smoking, the patient insists that he wants to go home. I am going to add aspirin and metoprolol to her current medical treatment and subsequently follow-up with the patient as an outpatient. Past Medical History Past Medical History: Liver Disease Additional Past Medical History / Comment(s): migraines, hepatitis C History of Any Multi-Drug Resistant Organisms: None Reported Past Surgical History: No Surgical Hx Reported Additional Past Anesthesia/Blood Transfusion Reaction / Comment(s): Pt has never had surgery. Past Psychological History: Anxiety Additional Psychological History / Comment(s): Pt resides with his mother. He is unemployed. He drives. Mother states this is the 3rd time this month that pt has overdosed on heroin. She states she wants to find out if he can discharge from hospital straight to rehab. She has narcan at home.,pt. petitioned at this time by his mother for making comments that he wanted to kill himself Smoking Status: Current every day smoker Past Alcohol Use History: None Reported Additional Past Alcohol Use History / Comment(s): Pt started smoking in 2005. Past Drug Use History: Heroin, IV Drug Use, Methamphetamine, Prescription Drug Abuse Additional Drug Use History / Comment(s): Pt uses IV heroin. - Past Family History Father Family Medical History: No Reported History Additional Family Medical History / Comment(s): Father is healthy Mother Family Medical History: No Reported History Additional Family Medical History / Comment(s): Mother is healthy. Medications and Allergies Home Medications Medication Instructions Recorded Confirmed Type Buprenorphine HCl/Naloxone HCl 1 film SUBLINGUAL BID 05/09/18 05/11/18 History [Suboxone 8 mg-2 mg Sl Film] traZODone HCL 150 mg PO HS 05/11/18 05/11/18 History Allergies Allergy/AdvReac Type Severity Reaction Status Date / Time No Known Allergies Allergy Verified 05/11/18 14:58 Physical Exam Vitals: Vital Signs Temp Pulse Pulse Resp BP BP Pulse Ox 05/12/18 04:00 78 17 05/12/18 00:20 98.2 F 86 17 125/68 97 05/12/18 00:10 86 17 05/11/18 22:50 93 108/67 95 05/11/18 22:40 96 108/67 95 05/11/18 22:20 92 108/67 95 05/11/18 22:10 92 108/67 95 05/11/18 22:00 90 16 108/67 98 05/11/18 21:50 101 H 05/11/18 21:40 101 H 05/11/18 21:30 100 05/11/18 21:20 104 H 05/11/18 21:00 105 H 120/78 05/11/18 20:50 103 H 120/78 05/11/18 20:40 105 H 120/78 05/11/18 20:30 105 H 120/78 05/11/18 20:20 108 H 120/78 05/11/18 20:10 106 H 120/78 05/11/18 20:00 112 H 120/78 95 05/11/18 19:56 104 H 05/11/18 19:50 98 120/78 95 05/11/18 19:48 101 H 05/11/18 19:40 120/78 05/11/18 19:30 104 H 120/78 97 05/11/18 19:23 95 05/11/18 19:19 97.6 F 103 H 16 120/78 97 05/11/18 17:31 99.2 F 100 18 120/71 93 L 05/11/18 16:04 112 H 05/11/18 15:54 110 H 05/11/18 14:34 100.5 F H 118 H 20 119/73 93 L Intake and Output 05/11/18 05/12/18 05/12/18 22:59 06:59 14:59 Other: Voiding Method Toilet # Voids 1 Weight 105.1 kg - Constitutional General appearance: no acute distress - Respiratory Respiratory: bilateral: CTA - Cardiovascular Rhythm: regular Heart sounds: normal: S1, S2 Results 05/11/18 15:57 05/11/18 15:57 Cardiac Enzymes 05/11/18 05/11/18 05/11/18 Range/Units 15:57 15:57 21:47 AST 96 H (17-59) U/L Troponin I 0.534 H* 0.351 H* (0.000-0.034) ng/mL 05/12/18 Range/Units 04:09 AST (17-59) U/L Troponin I 0.278 H* (0.000-0.034) ng/mL Coagulation 05/11/18 Range/Units 15:57 PT 11.0 (9.0-12.0) sec APTT 19.5 L (22.0-30.0) sec CBC 05/11/18 Range/Units 15:57 WBC 8.5 (3.8-10.6) k/uL RBC 4.37 (4.30-5.90) m/uL Hgb 12.9 L (13.0-17.5) gm/dL Hct 38.3 L (39.0-53.0) % Plt Count 154 (150-450) k/uL Comprehensive Metabolic Panel 05/11/18 Range/Units 15:57 Sodium 143 (137-145) mmol/L Potassium 3.9 (3.5-5.1) mmol/L Chloride 108 H (98-107) mmol/L Carbon Dioxide 29 (22-30) mmol/L BUN 11 (9-20) mg/dL Creatinine 0.67 (0.66-1.25) mg/dL Glucose 100 H (74-99) mg/dL Calcium 9.1 (8.4-10.2) mg/dL AST 96 H (17-59) U/L ALT 63 (21-72) U/L Alkaline Phosphatase 44 (38-126) U/L Total Protein 6.4 (6.3-8.2) g/dL Albumin 3.3 L (3.5-5.0) g/dL Current Medications Generic Name Dose Route Start Last Admin Trade Name Freq PRN Reason Stop Dose Admin Acetaminophen 650 mg 05/11/18 17:36 Tylenol Tab PO Q6HR PRN Mild Pain or Fever > 100.5 Albuterol/Ipratropium 3 ml 05/11/18 20:31 Duoneb 0.5 Mg-3 Mg/3 Ml Soln INHALATION RT-Q4H PRN Shortness Of Breath Or Wheezing Benzocaine/Menthol 1 each 05/11/18 17:36 Cepacol Lozenge MUCOUS MEM Q4HR PRN Sore Throat Sodium Chloride 1,000 mls @ 100 mls/hr 05/11/18 17:45 05/12/18 06:56 Saline 0.9% IV Not Given .Q10H SARAH Piperacillin/Tazobactam/ 50 mls @ 12.5 mls/hr 05/12/18 00:00 05/12/18 01:39 Dextrose 3.375 gm/ IV Solution IVPB 12.5 mls/hr Q8HR SARAH Administration Ibuprofen 400 mg 05/11/18 17:36 Motrin PO Q6HR PRN Mild Pain or Fever > 100.5 Ketorolac Tromethamine 30 mg 05/11/18 17:36 Toradol IVP 05/16/18 17:37 Q6HR PRN Moderate Pain Lorazepam 2 mg 05/11/18 18:20 05/11/18 18:29 Ativan IV 2 mg ONCE PRN Administration Agitation Lorazepam 1 mg 05/11/18 23:47 Ativan IV Q6HR PRN Anxiety Naloxone HCl 0.2 mg 05/11/18 17:36 Narcan IV Q2M PRN Opioid Reversal Ondansetron HCl 4 mg 05/11/18 17:36 Zofran IVP Q8HR PRN Nausea And Vomiting Ziprasidone 20 mg 05/11/18 17:41 05/11/18 22:02 Geodon IM 20 mg ONCE PRN Administration Agitation Intake and Output 05/11/18 05/12/18 05/12/18 22:59 06:59 14:59 Other: Voiding Method Toilet # Voids 1 Weight 105.1 kg 05/11/18 15:57 05/11/18 15:57 Assessment and Plan Assessment: Assessment #1 drug abuse #2 mildly abnormal cardiac enzymes could reflect acute non-ST patient myocardial infarction #3 significant history of smoking Plan #1 the patient is refusing to pursue with a heart catheterization or stress test #2 he underwent an echocardiogram which revealed normal LV function #3 add aspirin and metoprolol #4 follow-up with the patient.
[2018-05-12 09:25] VITALS: PULSE 88
[2018-05-12 11:59] VITALS: BP 111/61; TEMP 98.3
--- NOTE | 2018-05-12 13:29 | P.CN ---
Psychiatric Consult - . Consult date: 05/12/18 Consult:: History of Present Illness Consult date: 05/12/18 Chief complaint: suicidal History of present illness: (A 27-year-old gentleman who just left AMA after he presented to the hospital with heroine overdose and was unresponsive at home and was diagnosed with aspiration pneumonia where the patient was intubated and subsequently extubated the following day and left the hospital a few days after extubation. He presented back to the hospital not feeling well where he was experiencing suicidal ideation. 05/12/18 12:31 Assessment and Plan Assessment: Home Medications Medication Instructions Recorded Confirmed Buprenorphine HCl/Naloxone HCl 1 film SUBLINGUAL BID 05/09/18 05/11/18 [Suboxone 8 mg-2 mg Sl Film] traZODone HCL 150 mg PO HS 05/11/18 05/11/18 Allergies Allergy/AdvReac Type Severity Reaction Status Date / Time No Known Allergies Allergy Verified 05/11/18 14:58 Patient is a 27-year-old male with history of heroin abuse, presents or urgency department today when she went suicidal ideation. Patient was petitioned by police. EMS brought the Patient here. Patient was seen in the emergency department yesterday for heroin overdose. He subsequently developed aspiration pneumonia. He was extubated this morning and then quickly signed out AMA. Patient states that when he went home he took NyQuil. He reports he is not feeling well and felt like he needed to come here again. He reports no drug use between the initial overdose yesterday and today. Past Medical History Additional Past Medical History / Comment(s): migraines History of Any Multi-Drug Resistant Organisms: None Reported Past Surgical History: No Surgical Hx Reported Additional Past Anesthesia/Blood Transfusion Reaction / Comment(s): Pt has never had surgery. Past Psychological History: Anxiety Smoking Status: Current every day smoker Past Alcohol Use History: None Reported Past Drug Use History: Heroin - Past Family History Father Family Medical History: No Reported History Additional Family Medical History / Comment(s): Father is healthy Mother Family Medical History: No Reported History Additional Family Medical History / Comment(s): Mother is healthy. Musculoskeletal Examination - Abnormal/Involuntary Movements: [none Strength: [greater than antigravity (greater than/equal to 3/5) in all extremities Muscle Tone: [no impairment, Gait: [grossly normal Station: [grossly normal Mental Status Examination - General Appearance: [well groomed, casual, appears older than stated age Speech/Language: [spontaneous, slow, rapid, slurred, rambled, mumbling, hesitant , halting, monotone, expressive, mute, loud, soft, other] Attitude/Behavior: [cooperative, guarded, irritable, withdrawn, indifferent, other] Mood: [euthymic Affect: [full range Orientation: [time, person, place situation] Thought Content: [wnl Risk Factors: [He does not have suicidal (ideations, plan), and/or Homicidal ( ideations, plan), other] Perception: [wnl Thought Processes: [goal-oriented Concentration/Attention Span: [wnl ] [Per observation and interview with the patient] Recent Memory: [wnl, 3 out of 3 in 3 minutes] Remote Memory: [wnl, ] [past events, as related history] Intelligence: [ average, above] [based on history, based on vocabulary, syntax, grammar, and content] Judgement: [good] [per patient's behavior/history of present illness] Insight: [good] [understanding severity of illness/history of present illness] Clinical impression and diagnosis: Heroin overdose and severe heroin use disorder from a psychiatric standpoint this 27-year-old single male is not a harm to himself or others and has a clear sensorium and is able to take care of himself. He is wanting to go to [facility] treatment facility starting on Wednesday. He stated he would go home today and bean picker his stuff from his mother's move to his father's until Wednesday and then entered treatment for 30 day treatment. Did discuss that if he uses again he may not survive. Recommendations: I discussed with him that he needs treatment and AA for 90 days 90 meetings and ReVia/ Vivitrol might be a good idea for him. This time he do not see the need for a sitter and if he is medically stable he can be discharged. Thank you for the consultation Manny Roberts D.O. PhD attending psychiatrist Cristiane Strange (1) History of heroin abuse Current Visit: Yes Status: Acute Priority: Low Code(s): Z87.898 - PERSONAL HISTORY OF OTHER SPECIFIED CONDITIONS SNOMED Code(s): 860408015 (2) Suicidal ideation Current Visit: Yes Status: Acute Priority: Low Code(s): R45.851 - SUICIDAL IDEATIONS SNOMED Code(s): 7749448 (3) Drug overdose Narrative/Plan: Able to be discharged and sitter discontinued so that he can go to [facility] substance abuse long-term treatment Current Visit: No Status: Acute Priority: Low Code(s): T50.901A - POISONING BY UNSP DRUG/MEDS/BIOL SUBST, ACCIDENTAL, INIT SNOMED Code(s): 94617057 (4) Heroin overdose Current Visit: No Status: Acute Priority: Low Code(s): T40.1X1A - POISONING BY HEROIN, ACCIDENTAL (UNINTENTIONAL), INIT ENCNTR SNOMED Code(s): 045956734 (5) Poisoning by opiate or related narcotic Current Visit: No Status: Acute Priority: Low Code(s): OQK9883 - SNOMED Code(s): 02702645 Time with Patient: Less than 30
[2018-05-12] MEDS ORDERED: METOPROLOL TARTRATE 12.5 MG TAB PO SCH (21:00)
[2018-05-13] MEDS ORDERED: ASPIRIN 81 MG PO SCH (09:00)
--- NOTE | 2018-06-07 21:20 | P.HPIM ---
History of Present Illness H&P Date: 05/12/18 Chief Complaint: Suicidal ideation Patient is a 27-year-old male with history of heroin abuse, presents or urgency department today when he went suicidal ideation. Patient was petitioned by police. EMS brought the Patient here. Patient was seen in the emergency department yesterday for heroin overdose. He subsequently developed aspiration pneumonia. He was extubated this morning and then quickly signed out AMA. Patient states that when he went home he took NyQuil. He reports he is not feeling well and felt like he needed to come here again. He reports no drug use between the initial overdose yesterday and today. Patient was found have mildly elevated troponin. Otherwise denied any complains of chest pain or shortness of breath. UDS is positive for benzodiazepines patient is also having lactic acidosis. Currently patient denied any complaints of fever or chills. No nausea vomiting or abdominal pain. EKG showed sinus rhythm with nonspecific ST-T wave changes. Cardiology was consulted. Cardiology recommends cardiac catheterization due to elevated troponin level and possible underlying severe coronary artery disease. Patient refused to get cardiac catheterization or stress test at this time. Patient was started on aspirin and metoprolol. Review of Systems Constitutional: Patient denies any fever or chills . No generalized weakness or weight loss. Abdomen: Patient denied nausea vomiting and diarrhea and abdominal pain. Cardiovascular: Patient denies any chest pain or short of breath no palpitations. Respiratory: patient denied any cough is from production. No shortness of breath Neurologic: Patient denied any numbness or tingling headache. Musculoskeletal: Patient denies any complaints of joint swelling or deformity. Skin: Negative Psychiatric: Negative Endocrine: No heat or cold intolerance. No recent weight gain. Genitourinary: No dysuria or hematuria. All other 14 point ROS negative except the above Past Medical History Past Medical History: Liver Disease Additional Past Medical History / Comment(s): migraines, hepatitis C History of Any Multi-Drug Resistant Organisms: None Reported Past Surgical History: No Surgical Hx Reported Additional Past Anesthesia/Blood Transfusion Reaction / Comment(s): Pt has never had surgery. Past Psychological History: Anxiety Additional Psychological History / Comment(s): Pt resides with his mother. He is unemployed. He drives. Mother states this is the 3rd time this month that pt has overdosed on heroin. She states she wants to find out if he can discharge from hospital straight to rehab. She has narcan at home.,pt. petitioned at this time by his mother for making comments that he wanted to kill himself Smoking Status: Current every day smoker Past Alcohol Use History: None Reported Additional Past Alcohol Use History / Comment(s): Pt started smoking in 2005. Past Drug Use History: Heroin, IV Drug Use, Methamphetamine, Prescription Drug Abuse Additional Drug Use History / Comment(s): Pt uses IV heroin. - Past Family History Father Family Medical History: No Reported History Additional Family Medical History / Comment(s): Father is healthy Mother Family Medical History: No Reported History Additional Family Medical History / Comment(s): Mother is healthy. Medications and Allergies Home Medications Medication Instructions Recorded Confirmed Type Buprenorphine HCl/Naloxone HCl 1 film SUBLINGUAL BID 05/09/18 05/17/18 History [Suboxone 8 mg-2 mg Sl Film] traZODone HCL 150 mg PO HS 05/11/18 05/17/18 History Amoxicillin/Potassium Clav 1 tab PO Q12HR 7 Days #14 tab 05/12/18 05/17/18 Rx [Augmentin 875-125 Tablet] Aspirin 81 mg PO DAILY #30 chew 05/12/18 05/17/18 Rx LORazepam [Ativan] 0.5 mg PO BID 3 Days #6 tab 05/12/18 05/17/18 Rx Metoprolol Tartrate [Lopressor] 12.5 mg PO BID #60 tab 05/12/18 05/17/18 Rx Mupirocin 2% Oint [Bactroban Oint] 1 applic TOPICAL TID #1 gm 05/17/18 Rx Allergies Allergy/AdvReac Type Severity Reaction Status Date / Time No Known Allergies Allergy Verified 05/17/18 14:21 Physical Exam Vitals: Vital Signs Temp Pulse Pulse Resp BP BP Pulse Ox 05/12/18 11:57 98.3 F 85 16 111/61 96 05/12/18 08:30 98.2 F 88 16 119/74 96 05/12/18 04:00 78 17 05/12/18 00:20 98.2 F 86 17 125/68 97 05/12/18 00:10 86 17 05/11/18 22:50 93 108/67 95 05/11/18 22:40 96 108/67 95 05/11/18 22:20 92 108/67 95 05/11/18 22:10 92 108/67 95 05/11/18 22:00 90 16 108/67 98 05/11/18 21:50 101 H 05/11/18 21:40 101 H 05/11/18 21:30 100 05/11/18 21:20 104 H 05/11/18 21:00 105 H 120/78 05/11/18 20:50 103 H 120/78 05/11/18 20:40 105 H 120/78 05/11/18 20:30 105 H 120/78 05/11/18 20:20 108 H 120/78 05/11/18 20:10 106 H 120/78 05/11/18 20:00 112 H 120/78 95 05/11/18 19:56 104 H 05/11/18 19:50 98 120/78 95 05/11/18 19:48 101 H 05/11/18 19:40 120/78 05/11/18 19:30 104 H 120/78 97 05/11/18 19:23 95 05/11/18 19:19 97.6 F 103 H 16 120/78 97 05/11/18 17:31 99.2 F 100 18 120/71 93 L 05/11/18 16:04 112 H 05/11/18 15:54 110 H 05/11/18 14:34 100.5 F H 118 H 20 119/73 93 L Intake and Output 05/11/18 05/12/18 05/12/18 22:59 06:59 14:59 Intake Total 120 Balance 120 Intake: Oral 120 Other: Voiding Method Toilet Toilet # Voids 1 Weight 105.1 kg PHYSICAL EXAMINATION: Patient is lying in the bed comfortably, no acute distress, awake alert and oriented.. HEENT: Normocephalic. Neck is supple. Pupils reactive. Nostrils clear. Oral cavity is moist. Ears reveal no drainage. Neck reveals no JVD, carotid bruits, or thyromegaly. CHEST EXAMINATION: Trachea is central. Symmetrical expansion. Lung crowe clear to auscultation and percussion. CARDIAC: Normal S1, S2 with no gallops. No murmurs ABDOMEN: Soft. Bowel sounds normal. No organomegaly. No abdominal bruits. Extremities: reveal no edema. No clubbing or cyanosis Neurologically awake, alert, oriented x3 with well-coordinated movements. No focal deficits noted Skin: No rash or skin lesions. Psychiatric: Coperative. Nonsuicidal. Anxious to go home. Musculoskeletal: No joint swelling or deformity. Normal range of motion. Results CBC & Chem 7: 18 15:57 18 15:57 Labs: Abnormal Lab Results - Last 24 Hours (Table) 05/11/18 05/11/18 05/11/18 Range/Units 15:57 15:57 15:57 Hgb 12.9 L (13.0-17.5) gm/dL Hct 38.3 L (39.0-53.0) % APTT (22.0-30.0) sec Chloride 108 H (98-107) mmol/L Glucose 100 H (74-99) mg/dL Plasma Lactic Acid Renan 2.5 H* (0.7-2.0) mmol/L AST 96 H (17-59) U/L Troponin I (0.000-0.034) ng/mL Albumin 3.3 L (3.5-5.0) g/dL U Methamphetamines Scrn (NotDetected) U Benzodiazepines Scrn (NotDetected) 05/11/18 05/11/18 05/11/18 Range/Units 15:57 15:57 16:10 Hgb (13.0-17.5) gm/dL Hct (39.0-53.0) % APTT 19.5 L (22.0-30.0) sec Chloride (98-107) mmol/L Glucose (74-99) mg/dL Plasma Lactic Acid Renan (0.7-2.0) mmol/L AST (17-59) U/L Troponin I 0.534 H* (0.000-0.034) ng/mL Albumin (3.5-5.0) g/dL U Methamphetamines Scrn Detected H (NotDetected) U Benzodiazepines Scrn Detected H (NotDetected) 05/11/18 05/11/18 05/12/18 Range/Units 19:56 21:47 04:09 Hgb (13.0-17.5) gm/dL Hct (39.0-53.0) % APTT (22.0-30.0) sec Chloride (98-107) mmol/L Glucose (74-99) mg/dL Plasma Lactic Acid Renan 2.7 H* (0.7-2.0) mmol/L AST (17-59) U/L Troponin I 0.351 H* 0.278 H* (0.000-0.034) ng/mL Albumin (3.5-5.0) g/dL U Methamphetamines Scrn (NotDetected) U Benzodiazepines Scrn (NotDetected) Microbiology - Last 24 Hours (Table) 05/11/18 16:10 Urine Culture - Preliminary Urine,Voided Thrombosis Risk Factor Assmnt - DVT/VTE Prophylaxis DVT/VTE Prophylaxis: Pharmacologic Prophylaxis ordered - Choose All That Apply Any of the Below Risk Factors Present?: Yes Each Factor Represents 1 point: Obesity (BMI >25), Serious lung disease incl. pneumonia (< 1month) Other Risk Factors: No Other congenital or acquired thrombophilia - If yes, enter type in comment: No Thrombosis Risk Factor Assessment Total Risk Factor Score: 2 Thrombosis Risk Factor Assessment Level: Low Risk Assessment and Plan Assessment: Suicidal ideation. Petition at this time. Acute heroin overdose and acute hypoxemic respiratory failure and possible aspiration. Status post extubation yesterday. Prior history of drug overdose Insomnia Ongoing tobacco use UDS positive for methamphetamine and benzodiazepines DVT prophylaxis. 27-year-old male currently with the hospital due to social ideation at home. Patient was in the hospital MICU due to hypoxemic respiratory failure and was extubated. Patient left AMA and came back to the hospital as he was petitioned. Psychiatric was consulted. Cardiology was consulted as well for elevated troponin level. Continue the telemetry monitoring. Constant observation and follow up closely. Time with Patient: Greater than 30
--- NOTE | 2018-06-07 21:22 | P.DS ---
Providers Date of admission: 05/11/18 15:01 Expected date of discharge: 05/12/18 Attending physician: Jose Miguel Bey MD Consults: 05/11/18 17:36 Consult Physician Stat Consulting Provider: Manny Roberts Consult Reason/Comments: Heroin OD, Suicidal ideation, Petition Do you want consulting provider notified?: Yes Consult Physician Stat Consulting Provider: Juan Leon Consult Reason/Comments: Elevated Troponin Do you want consulting provider notified?: Yes Primary care physician: Stated None Hospital Course: Discharge diagnosis Suicidal ideation. Currently denied any suicidal ideation. Cleared from psychiatric standpoint.. Acute heroin overdose and acute hypoxemic respiratory failure and possible aspiration. Status post extubation yesterday. Patient left AMA. Prior history of drug overdose Insomnia Ongoing tobacco use UDS positive for methamphetamine and benzodiazepines DVT prophylaxis. Hospital course Patient is a 27-year-old male with history of heroin abuse, presents or urgency department today when he went suicidal ideation. Patient was petitioned by police. EMS brought the Patient here. Patient was seen in the emergency department yesterday for heroin overdose. He subsequently developed aspiration pneumonia. He was extubated this morning and then quickly signed out AMA. Patient states that when he went home he took NyQuil. He reports he is not feeling well and felt like he needed to come here again. He reports no drug use between the initial overdose yesterday and today. Patient was found have mildly elevated troponin. Otherwise denied any complains of chest pain or shortness of breath. UDS is positive for benzodiazepines patient is also having lactic acidosis. Currently patient denied any complaints of fever or chills. No nausea vomiting or abdominal pain. EKG showed sinus rhythm with nonspecific ST-T wave changes. Cardiology was consulted. Cardiology recommends cardiac catheterization due to elevated troponin level and possible underlying severe coronary artery disease. Patient refused to get cardiac catheterization or stress test at this time. Patient was started on aspirin and metoprolol. Psychiatric was consulted. Cardiology was consulted as well for elevated troponin level. Continue the telemetry monitoring. Constant observation and follow up closely. Patient was seen by psychiatric and does not recommend inpatient psychiatric admission at this time. Patient was recommended to have cardiac Catheterization or stress test as per cardiology due to elevated troponin level. Patient refused to get tested this time and wants to be discharged home. Discussed with his mother at bedside in detail regarding his medical condition. Since the patient is cleared by psychiatry patient will be discharged home with family and follow with primary care physician and mental health clinic as an outpatient. Discharge physical examination was done and vitals reviewed. Total time taken greater than 35 minutes including 18 minutes for counseling and coordination of care. Patient Condition at Discharge: Stable Plan - Discharge Summary Discharge Rx Participant: No New Discharge Prescriptions: New Aspirin 81 mg PO DAILY #30 chew Metoprolol Tartrate [Lopressor] 12.5 mg PO BID #60 tab Amoxicillin/Potassium Clav [Augmentin 875-125 Tablet] 1 tab PO Q12HR 7 Days # 14 tab LORazepam [Ativan] 0.5 mg PO BID 3 Days #6 tab Continue Buprenorphine HCl/Naloxone HCl [Suboxone 8 mg-2 mg Sl Film] 1 film SUBLINGUAL BID traZODone HCL 150 mg PO HS No Action Mupirocin 2% Oint [Bactroban Oint] 1 applic TOPICAL TID #1 gm Discharge Medication List Buprenorphine HCl/Naloxone HCl [Suboxone 8 mg-2 mg Sl Film] 1 film SUBLINGUAL BID 05/09/18 [History] traZODone HCL 150 mg PO HS 05/11/18 [History] Amoxicillin/Potassium Clav [Augmentin 875-125 Tablet] 1 tab PO Q12HR 7 Days #14 tab 05/12/18 [Rx] Aspirin 81 mg PO DAILY #30 chew 05/12/18 [Rx] LORazepam [Ativan] 0.5 mg PO BID 3 Days #6 tab 05/12/18 [Rx] Metoprolol Tartrate [Lopressor] 12.5 mg PO BID #60 tab 05/12/18 [Rx] Mupirocin 2% Oint [Bactroban Oint] 1 applic TOPICAL TID #1 gm 05/17/18 [Rx] Follow up Appointment(s)/Referral(s): Walt Rubio MD [STAFF PHYSICIAN] - 2 Weeks None,Stated [Primary Care Provider] - 1-2 days Patient Instructions/Handouts: Suicide Prevention (DC) Discharge Disposition: HOME SELF-CARE
== END 2018-05-12 17:05 | disposition home or self-care (01) ==
LOC: EC 14:33 → INTOOBSV 15:01 → 3SCARD 15:01 → UNDODISIN 05-12 17:05
PROVIDERS: ADMIT Internal Medicine; ATTEND Internal Medicine
DX: R45.851 Suicidal ideations (principal); R77.8 Other specified abnormalities of plasma proteins; E87.2 Acidosis; E66.9 Obesity, unspecified; Z68.31 Body mass index [BMI] 31.0-31.9, adult; T40.1X1D Poisoning by heroin, accidental (unintentional), subsequent encounter; J96.01 Acute respiratory failure with hypoxia; Z04.6 Encounter for general psychiatric examination, requested by authority; G43.909 Migraine, unspecified, not intractable, without status migrainosus; B19.20 Unspecified viral hepatitis C without hepatic coma; G47.00 Insomnia, unspecified; F11.10 Opioid abuse, uncomplicated; F41.9 Anxiety disorder, unspecified; J40 Bronchitis, not specified as acute or chronic; R53.1 Weakness; F17.210 Nicotine dependence, cigarettes, uncomplicated; R74.8 Abnormal levels of other serum enzymes; R00.0 Tachycardia, unspecified; Z79.891 Long term (current) use of opiate analgesic; Z79.899 Other long term (current) drug therapy; Z86.59 Personal history of other mental and behavioral disorders; Z91.5 Personal history of self-harm
CPT/HCPCS: 96376 ×2; 96366 ×2; 96361; 96365; 96372; 96375; 99285; 36415; 94640; 93005; 80053; 83605; 84484 ×2; 85025; 85610; 85730; 81003; 87040; 80306; 87086; 71046; G0378 ×2; J2060 ×2; J3486; J2543 ×2

== ENCOUNTER 2018-05-17 13:33 | Emergency (ER) | payer OTHER ==
[2018-05-17 13:58] VITALS: TEMP 98.5
[2018-05-17] MEDS ORDERED: NALOXONE 0.4 MG/ML 10 ML VIAL IVP STA (14:37)
--- NOTE | 2018-05-17 15:04 | ED ---
General Adult HPI - General Chief complaint: Wound/Laceration Stated complaint: infection Time Seen by Provider: 05/17/18 14:11 Source: patient, RN notes reviewed, old records reviewed Mode of arrival: wheelchair Limitations: no limitations - History of Present Illness Initial comments: Patient 27-year-old male presented to the emergency room today with a chief complaint of needing medical clearance to go to [facility] for rehab. Patient does admit to be a hair when user. Patient states he was seen and admitted in the hospital recently. Patient states that he woke up a few days ago noticed a blister to the right hip area. He states that it did pop 2 days ago. He states there is some local redness. He does admit that it is locally tender. Patient currently denies any other complains. He states she's not used any heroin today. He does admit that he did take the next. Patient denies any other complaints. Patient denies any recent fever, chills, shortness of breath, chest pain, back pain, numbness or tingling, headaches or visual changes, or any other complaints. - Related Data Home Medications Medication Instructions Recorded Confirmed Buprenorphine HCl/Naloxone HCl 1 film SUBLINGUAL BID 05/09/18 05/17/18 [Suboxone 8 mg-2 mg Sl Film] traZODone HCL 150 mg PO HS 05/11/18 05/17/18 Previous Rx's Medication Instructions Recorded Amoxicillin/Potassium Clav 1 tab PO Q12HR 7 Days #14 tab 05/12/18 [Augmentin 875-125 Tablet] Aspirin 81 mg PO DAILY #30 chew 05/12/18 LORazepam [Ativan] 0.5 mg PO BID 3 Days #6 tab 05/12/18 Metoprolol Tartrate [Lopressor] 12.5 mg PO BID #60 tab 05/12/18 Mupirocin 2% Oint [Bactroban Oint] 1 applic TOPICAL TID #1 gm 05/17/18 Allergies Allergy/AdvReac Type Severity Reaction Status Date / Time No Known Allergies Allergy Verified 05/17/18 14:21 Review of Systems ROS Statement: Those systems with pertinent positive or pertinent negative responses have been documented in the HPI. ROS Other: All systems not noted in ROS Statement are negative. Past Medical History Past Medical History: Liver Disease Additional Past Medical History / Comment(s): migraines, hepatitis C History of Any Multi-Drug Resistant Organisms: None Reported Past Surgical History: No Surgical Hx Reported Additional Past Anesthesia/Blood Transfusion Reaction / Comment(s): Pt has never had surgery. Past Psychological History: Anxiety Smoking Status: Current every day smoker Past Alcohol Use History: None Reported Past Drug Use History: Heroin, IV Drug Use, Methamphetamine, Prescription Drug Abuse - Past Family History Father Family Medical History: No Reported History Additional Family Medical History / Comment(s): Father is healthy Mother Family Medical History: No Reported History Additional Family Medical History / Comment(s): Mother is healthy. General Exam - General Exam Comments Initial Comments: General: The patient is awake and alert, in no distress, and does not appear acutely ill. Eye: Pupils are equal, round and reactive to light. Extra-ocular movements are intact. No nystagmus. There is normal conjunctiva bilaterally. No signs of icterus. Ears, nose, mouth and throat: There are moist mucous membranes and no oral lesions. Neck: The neck is supple, there is no tenderness or JVD. Cardiovascular: There is a regular rate and rhythm. No murmur, rub or gallop is appreciated. Respiratory: Lungs are clear to auscultation, respirations are non-labored, breath sounds are equal. No wheezes, stridor, rales, or rhonchi. Musculoskeletal: Normal ROM, no tenderness. Sensation intact. Strength 5/5. Pulses equal bilaterally 2+. Neurological: A&O x 3. CN II-XII intact, There are no obvious motor or sensory deficits. Coordination appears grossly intact. Speech is normal. Skin: Patient does have superficial abrasion to the right hip area measures approximately 6 cm across by 5 cm. There is some local surrounding redness. Psychiatric: Cooperative, appropriate mood & affect, normal judgment. Limitations: no limitations Course Vital Signs 05/17/18 05/17/18 05/17/18 13:55 14:26 15:20 Temperature 98.5 F Pulse Rate 81 75 Respiratory 18 19 Rate Blood Pressure 93/46 85/50 112/60 O2 Sat by Pulse 92 L 96 Oximetry Medical Decision Making - Medical Decision Making Patient reexamined at this time shows no signs of distress. Patient's been up ambulatory here in emergency room. Patient's initial blood pressure and vital signs were low. Patient's repeat blood pressure is much improved. He said to get up and stable over the last half hour. Patient's resting comfortably in has declined any further blood work. Blood work was going to be obtained due to the low blood pressure. He currently is on antibiotic for pneumonia he is on Augmentin. Patient does have a abrasion to the right hip area that is superficial. There is no sign of a secondary infection at this time. Signs and symptoms were discussed with patient and his father at bedside. At this time patient would like to be discharged and go to rehab. His blood pressure has been stable. Patient will be discharged clearance to go to rehab for heroin abuse. Disposition Clinical Impression: Opiate abuse, episodic, Abrasion Disposition: HOME SELF-CARE Condition: Good Instructions: Abrasion (ED) Additional Instructions: Please watch for any secondary signs of infection which may include increased pain, redness or swelling. Please continue topical antibiotics as prescribed. Prescriptions: Mupirocin 2% Oint [Bactroban Oint] 1 applic TOPICAL TID #1 gm Is patient prescribed a controlled substance at d/c from ED?: No Referrals: None,Stated [Primary Care Provider] - 1-2 days Time of Disposition: 15:48
[2018-05-17 15:53] VITALS: BP 125/83; PULSE 76; RESP 18
== END 2018-05-17 15:53 | disposition home or self-care (01) ==
LOC: EC 13:33
DX: S70.211A Abrasion, right hip, initial encounter (principal); F11.10 Opioid abuse, uncomplicated; J18.9 Pneumonia, unspecified organism; F41.9 Anxiety disorder, unspecified; F17.200 Nicotine dependence, unspecified, uncomplicated; Z79.899 Other long term (current) drug therapy; X58.XXXA Exposure to other specified factors, initial encounter
CPT/HCPCS: 99283

== ENCOUNTER 2018-06-27 16:52 | Emergency (ER) | payer OTHER ==
[2018-06-27] MEDS ORDERED: NALOXONE 0.4 MG/ML 10 ML VIAL IVP STA (17:09)
--- NOTE | 2018-06-27 17:11 | ED ---
Overdose HPI - General Chief Complaint: Overdose Stated Complaint: Overdose Time Seen by Provider: 06/27/18 16:56 Source: patient, RN notes reviewed, old records reviewed Mode of arrival: ambulatory Limitations: no limitations - History of Present Illness Initial Comments: This is an 27-year-old male to the ER for evaluation of overdose. Patient was a front of the hospital drop off secondary to overdose and unresponsiveness. Patient was brought in apneic, cyanotic to patient was brought to trauma room, patient was bagged appropriately, did have color improvement, IV was started patient was given Narcan and he did respond. No nausea vomiting, patient currently without any complaint MD Complaint: accidental overdose (Heroin, trying to get high) -: minutes(s) Intent: unwilling to say (Drug abuse rate issue) How Overdose Was Discovered: other (Intentional, brought in by friends) Context: Intentional Overdose: drug/ETOH problems Context: Accidental Overdose: wanted to get high Associated Symptoms: depression (Not suicidal) Treatments Prior to Arrival: none - Related Data Home Medications Medication Instructions Recorded Confirmed Buprenorphine HCl/Naloxone HCl 1 film SUBLINGUAL BID 05/09/18 05/17/18 [Suboxone 8 mg-2 mg Sl Film] traZODone HCL 150 mg PO HS 05/11/18 05/17/18 Previous Rx's Medication Instructions Recorded Amoxicillin/Potassium Clav 1 tab PO Q12HR 7 Days #14 tab 05/12/18 [Augmentin 875-125 Tablet] Aspirin 81 mg PO DAILY #30 chew 05/12/18 LORazepam [Ativan] 0.5 mg PO BID 3 Days #6 tab 05/12/18 Metoprolol Tartrate [Lopressor] 12.5 mg PO BID #60 tab 05/12/18 Mupirocin 2% Oint [Bactroban Oint] 1 applic TOPICAL TID #1 gm 05/17/18 Allergies Allergy/AdvReac Type Severity Reaction Status Date / Time No Known Allergies Allergy Verified 05/17/18 14:21 Review of Systems ROS Statement: Those systems with pertinent positive or pertinent negative responses have been documented in the HPI. ROS Other: All systems not noted in ROS Statement are negative. Past Medical History Past Medical History: Liver Disease Additional Past Medical History / Comment(s): migraines, hepatitis C, drug overdoses, heroin use History of Any Multi-Drug Resistant Organisms: None Reported Past Surgical History: No Surgical Hx Reported Additional Past Anesthesia/Blood Transfusion Reaction / Comment(s): Pt has never had surgery. Past Psychological History: Anxiety Smoking Status: Current every day smoker Past Alcohol Use History: None Reported Past Drug Use History: Heroin, IV Drug Use, Methamphetamine, Prescription Drug Abuse - Past Family History Father Family Medical History: No Reported History Additional Family Medical History / Comment(s): Father is healthy Mother Family Medical History: No Reported History Additional Family Medical History / Comment(s): Mother is healthy. General Exam Limitations: altered mental status General appearance: obtunded, in distress Head exam: Present: atraumatic, normocephalic, normal inspection Eye exam: Present: normal appearance, PERRL, EOMI. Absent: scleral icterus, conjunctival injection, periorbital swelling ENT exam: Present: normal exam, mucous membranes moist Neck exam: Present: normal inspection. Absent: tenderness, meningismus, lymphadenopathy Respiratory exam: Present: other (Patient). Absent: respiratory distress, wheezes, rales, rhonchi, stridor Cardiovascular Exam: Present: regular rate, normal rhythm, normal heart sounds. Absent: systolic murmur, diastolic murmur, rubs, gallop, clicks GI/Abdominal exam: Present: soft, normal bowel sounds. Absent: distended, tenderness, guarding, rebound, rigid Extremities exam: Present: normal inspection, full ROM, normal capillary refill. Absent: tenderness, pedal edema, joint swelling, calf tenderness Back exam: Present: normal inspection Neurological exam: Present: alert, oriented X3, CN II-XII intact Psychiatric exam: Present: normal affect, normal mood Skin exam: Present: warm, dry, intact, normal color. Absent: rash Course Vital Signs 06/27/18 06/27/18 16:56 17:00 Temperature 97.5 F L Pulse Rate 116 H Respiratory 14 0 L Rate Blood Pressure 132/81 O2 Sat by Pulse 98 Oximetry - Reevaluation(s) Reevaluation #1: 06/27/18 17:39 Record is reviewed with multiple heroin overdose ER visits in the last 3 months Reevaluation #2: 06/27/18 17:39 Patient informed of extremely high risk of secondary to his multiple ER visits for overdose Medical Decision Making - Medical Decision Making 27 male the ER status post heroin overdose, patient was bagged to the emergency room, IV was started patient was given Narcan, he did respond appropriately. Patient was monitored for some time although he then said that would be in the hospital a longer, patient will be discharged home Critical Care Time Critical Care Time: Yes Total Critical Care Time: 31 Disposition Clinical Impression: History of heroin abuse, Drug overdose Disposition: HOME SELF-CARE Condition: Good Instructions: Opioid Use Disorder (ED) Is patient prescribed a controlled substance at d/c from ED?: No Referrals: None,Stated [Primary Care Provider] - 1-2 days
[2018-06-27 17:47] VITALS: BP 130/89; PULSE 114; RESP 16; TEMP 98.4
== END 2018-06-27 17:53 | disposition home or self-care (01) ==
LOC: EC 16:52
DX: T40.1X1A Poisoning by heroin, accidental (unintentional), initial encounter (principal); R41.82 Altered mental status, unspecified; F17.200 Nicotine dependence, unspecified, uncomplicated; F41.9 Anxiety disorder, unspecified; Z79.899 Other long term (current) drug therapy
CPT/HCPCS: 93005; 96374; 99285; J2310

== ENCOUNTER 2018-07-11 18:50 | Emergency (ER) | payer OTHER ==
--- NOTE | 2018-07-11 19:07 | ED ---
General Adult HPI - General Stated complaint: OVERDOSE Time Seen by Provider: 07/11/18 19:00 Source: RN notes reviewed, old records reviewed - History of Present Illness Initial comments: 28-year-old male presents with suspected opiate overdose. Patient is agonal, cyanotic pinpoint pupils. No history obtained from the patient. - Related Data Home Medications Medication Instructions Recorded Confirmed Buprenorphine HCl/Naloxone HCl 1 film SL BID 07/11/18 07/11/18 [Suboxone 8 mg-2 mg Sl Film] traZODone HCL 100 mg PO HS 07/11/18 07/11/18 Allergies Allergy/AdvReac Type Severity Reaction Status Date / Time No Known Allergies Allergy Verified 06/27/18 17:43 Review of Systems ROS Statement: Those systems with pertinent positive or pertinent negative responses have been documented in the HPI. ROS Other: All systems not noted in ROS Statement are negative. Past Medical History Past Medical History: Liver Disease Additional Past Medical History / Comment(s): migraines, hepatitis C, drug overdoses, heroin use History of Any Multi-Drug Resistant Organisms: None Reported Past Surgical History: No Surgical Hx Reported Additional Past Anesthesia/Blood Transfusion Reaction / Comment(s): Pt has never had surgery. Past Psychological History: Anxiety Smoking Status: Current every day smoker Past Alcohol Use History: None Reported Past Drug Use History: Heroin, IV Drug Use, Methamphetamine, Prescription Drug Abuse - Past Family History Father Family Medical History: No Reported History Additional Family Medical History / Comment(s): Father is healthy Mother Family Medical History: No Reported History Additional Family Medical History / Comment(s): Mother is healthy. General Exam General appearance: obtunded Head exam: Present: atraumatic, normocephalic Eye exam: Present: other (pin point Pupils) Respiratory exam: Present: other (No spontaneous respirations) Cardiovascular Exam: Present: regular rate, normal rhythm GI/Abdominal exam: Present: soft. Absent: distended, tenderness, guarding Extremities exam: Present: other (Eschar right hip, no surrounding cellulitis) Skin exam: Present: warm, diaphoretic Course Vital Signs 07/11/18 19:06 Temperature 97.6 F Pulse Rate 112 H Respiratory 20 Rate Blood Pressure 150/36 O2 Sat by Pulse 100 Oximetry - Reevaluation(s) Reevaluation #1: 07/11/18 19:53 Patient responds well to 25 mg of Narcan. This is given both sublingually and IV. Patient is alert and oriented after administration with normal respirations and oxygenation. Medical Decision Making - Medical Decision Making 28-year-old male presents after heroin overdose. He admits to snorting heroin. He is alert and oriented after Narcan administration. Patient refuses to stay in the emergency department for observation even though the half-life of Narcan is shorter than the half-life of heroin. He is advised of the risks. He will sign out AGAINST MEDICAL ADVICE. Disposition Clinical Impression: History of heroin abuse, Drug overdose Disposition: Left Against Medical Advice Condition: Fair Is patient prescribed a controlled substance at d/c from ED?: No Referrals: None,Stated [Primary Care Provider] - 1-2 days Time of Disposition: 19:55
[2018-07-11 19:14] VITALS: BP 150/36; PULSE 112; RESP 20; TEMP 97.6
== END 2018-07-11 19:47 | disposition left against medical advice (07) ==
LOC: EC 18:50
DX: T40.1X1A Poisoning by heroin, accidental (unintentional), initial encounter (principal); F41.9 Anxiety disorder, unspecified; F17.200 Nicotine dependence, unspecified, uncomplicated; Z79.899 Other long term (current) drug therapy
CPT/HCPCS: 99284

== ENCOUNTER 2018-07-26 13:26 | Emergency (ER) | payer OTHER ==
[~2018-07-26 13:26] MED LIST: NALOXONE 0.4 MG/ML 10 ML VIAL IVP PRN
[2018-07-26 13:38] VITALS: BP 150/78; PULSE 113; TEMP 97.9
--- NOTE | 2018-07-26 13:44 | ED ---
General Adult HPI - General Chief complaint: Overdose Stated complaint: Overdose Source: family, RN notes reviewed Mode of arrival: wheelchair Limitations: altered mental status - History of Present Illness Initial comments: This is a 28-year-old male who has a past medical history significant for heroin abuse and multiple overdoses. Patient was brought in by private vehicle and was unresponsive. Patient was brought back triage to trauma bay 1. In the process he was being bagged. Patient is completely unresponsive I continue to assist in bagging Narcan was given he immediately woke up. When patient became alert and oriented immediately wanted to leave AMA. - Related Data Home Medications Medication Instructions Recorded Confirmed Buprenorphine HCl/Naloxone HCl 1 film SL BID 07/11/18 07/11/18 [Suboxone 8 mg-2 mg Sl Film] traZODone HCL 100 mg PO HS 07/11/18 07/11/18 Allergies Allergy/AdvReac Type Severity Reaction Status Date / Time No Known Allergies Allergy Verified 07/26/18 13:36 Review of Systems ROS Statement: Those systems with pertinent positive or pertinent negative responses have been documented in the HPI. ROS Other: All systems not noted in ROS Statement are negative. Past Medical History Past Medical History: Liver Disease Additional Past Medical History / Comment(s): migraines, hepatitis C, drug overdoses, heroin use History of Any Multi-Drug Resistant Organisms: None Reported Past Surgical History: No Surgical Hx Reported Additional Past Anesthesia/Blood Transfusion Reaction / Comment(s): Pt has never had surgery. Past Psychological History: Anxiety Smoking Status: Current every day smoker Past Alcohol Use History: None Reported Past Drug Use History: Heroin, IV Drug Use, Methamphetamine, Prescription Drug Abuse - Past Family History Father Family Medical History: No Reported History Additional Family Medical History / Comment(s): Father is healthy Mother Family Medical History: No Reported History Additional Family Medical History / Comment(s): Mother is healthy. General Exam - General Exam Comments Initial Comments: GENERAL: Patient is well-developed and well-nourished. Patient is nontoxic and well- hydrated and is in mild distress. ENT: Neck is soft and supple. No significant lymphadenopathy is noted. Oropharynx is clear. Moist mucous membranes. Neck has full range of motion without eliciting any pain. EYES: The sclera were anicteric and conjunctiva were pink and moist. Extraocular movements were intact and pupils were equal round and reactive to light. Eyelids were unremarkable. PULMONARY: Patient rhonchi bilaterally CARDIOVASCULAR: Patient was tachycardic. ABDOMEN: Soft and nontender with normal bowel sounds. SKIN: Skin is clear with no lesions or rashes and otherwise unremarkable. NEUROLOGIC: Patient is alert and oriented x3. Cranial nerves II through XII are grossly intact. Motor and sensory are also intact. Normal speech, volume and content. Symmetrical smile. MUSCULOSKELETAL: Normal extremities with adequate strength and full range of motion. No lower extremity swelling or edema. No calf tenderness. LYMPHATICS: No significant lymphadenopathy is noted PSYCHIATRIC: Normal psychiatric evaluation. Limitations: altered mental status Course Vital Signs 07/26/18 13:26 Temperature 97.9 F Pulse Rate 113 H Respiratory 16 Rate Blood Pressure 150/78 O2 Sat by Pulse 100 Oximetry Medical Decision Making - Medical Decision Making After giving Narcan patient was oxygenating in the high 90s and he did vomit once upon awakening. I was called back to the room shortly after this patient refused any further workup and wanted to leave AMA. Patient was alert and oriented 3 he understood the consequences he did not want an EKG and lab work or an x-ray. Patient signed out AGAINST MEDICAL ADVICE knowing the pitfalls Disposition Clinical Impression: History of heroin abuse, Drug overdose Disposition: Left Against Medical Advice Referrals: None,Stated [Primary Care Provider] - 1-2 days Time of Disposition: 13:44
[2018-07-26 13:47] VITALS: RESP 4
== END 2018-07-26 13:44 | disposition left against medical advice (07) ==
LOC: EC 13:26
DX: T50.901A Poisoning by unspecified drugs, medicaments and biological substances, accidental (unintentional), initial encounter (principal); F41.9 Anxiety disorder, unspecified; F17.200 Nicotine dependence, unspecified, uncomplicated; Z79.899 Other long term (current) drug therapy; Z53.29 Procedure and treatment not carried out because of patient's decision for other reasons
CPT/HCPCS: 99284; 96374; J2310; 99283

== ENCOUNTER 2018-08-26 11:28 | Emergency (ER) | payer OTHER ==
[2018-08-26 11:45] VITALS: BP 105/71; PULSE 82; RESP 20; TEMP 98.3
[2018-08-26 12:51] LABS: Basophils % (A) 0 %; Eosinophils # (A) 0.1 k/uL (0-0.7); Eosinophils % (A) 2 %; HCT 49.5 % (39.0-53.0); HGB 16.3 gm/dL (13.0-17.5); Lymphocytes % (A) 29 %; MCV 87.9 fL (80.0-100.0); Mean Platelet Volume 6.7; Monocytes # (A) 0.3 k/uL (0-1.0); Monocytes % (A) 4 %; Neutrophils # (A) 4.6 k/uL (1.3-7.7); Neutrophils % (A) 64 %; Platelet Count 258 k/uL (150-450); RBC 5.63 m/uL (4.30-5.90); RDW 13.9 % (11.5-15.5); WBC 7.1 k/uL (3.8-10.6)
[2018-08-26 13:06] LABS: Partial Thromboplastin Time 26.1 sec (22.0-30.0); Prothrombin Time 10.4 sec (9.0-12.0)
[2018-08-26 13:11] LABS: ALT 45 U/L (21-72); AST 33 U/L (17-59); Albumin 4.4 g/dL (3.5-5.0); Alkaline Phosphatase 44 U/L (38-126); Anion Gap 7 mmol/L; Blood Urea Nitrogen 13 mg/dL (9-20); Calcium 9.9 mg/dL (8.4-10.2); Carbon Dioxide 25 mmol/L (22-30); Chloride 107 mmol/L (98-107); Glucose 102 mg/dL (74-99); Sodium 139 mmol/L (137-145); Total Bilirubin 0.7 mg/dL (0.2-1.3); Total Protein 7.5 g/dL (6.3-8.2)
--- NOTE | 2018-08-26 13:28 | XR ---
EXAMINATION TYPE: XR Hip Complete RT DATE OF EXAM: 08/26/2018 CLINICAL HISTORY: Fall injury with pain. TECHNIQUE: AP and frogleg views of the right hip are obtained. COMPARISON: None. FINDINGS: There is no acute fracture/dislocation evident in the right hip. Mild to moderate superior axial joint space loss is present slightly more prominent on frog-leg image. No significant spurring is seen. The overlying soft tissue appears unremarkable. IMPRESSION: There is no acute fracture or dislocation in the right hip.
[2018-08-26 13:40] LABS: Potassium 5.3 mmol/L (3.5-5.1)
--- NOTE | 2018-08-26 13:42 | ED ---
Skin/Abscess/FB HPI - General Chief complaint: Skin/Abscess/Foreign Body Stated complaint: rt hip wound, poss sepsis, sent by [facility] Time Seen by Provider: 08/26/18 11:46 Source: patient Mode of arrival: ambulatory Limitations: no limitations - Related Data Home Medications Medication Instructions Recorded Confirmed No Known Home Medications 08/26/18 08/26/18 Allergies Allergy/AdvReac Type Severity Reaction Status Date / Time No Known Allergies Allergy Verified 08/26/18 12:00 Review of Systems ROS Statement: Those systems with pertinent positive or pertinent negative responses have been documented in the HPI. ROS Other: All systems not noted in ROS Statement are negative. Past Medical History Past Medical History: Liver Disease Additional Past Medical History / Comment(s): migraines, hepatitis C, drug overdoses, heroin use History of Any Multi-Drug Resistant Organisms: None Reported Past Surgical History: No Surgical Hx Reported Additional Past Anesthesia/Blood Transfusion Reaction / Comment(s): Pt has never had surgery. Past Psychological History: Anxiety Smoking Status: Current every day smoker Past Alcohol Use History: None Reported Past Drug Use History: Heroin, IV Drug Use, Methamphetamine, Prescription Drug Abuse - Past Family History Father Family Medical History: No Reported History Additional Family Medical History / Comment(s): Father is healthy Mother Family Medical History: No Reported History Additional Family Medical History / Comment(s): Mother is healthy. General Exam Limitations: no limitations Course Vital Signs 08/26/18 11:41 Temperature 98.3 F Pulse Rate 82 Respiratory 20 Rate Blood Pressure 105/71 O2 Sat by Pulse 95 Oximetry Medical Decision Making - Medical Decision Making 28-year-old male presented for wound on his right hip. Patient had lab work, x- ray no acute findings. Patient is a chronic wound from several months ago. It' s not acutely infected. Patient does need to see wound care for debridement and further treatment though he can go to rehab with follow-up. - Lab Data Result diagrams: 08/26/18 12:38 Lab Results 08/26/18 08/26/18 08/26/18 Range/Units 12:38 12:38 12:38 WBC 7.1 (3.8-10.6) k/uL RBC 5.63 (4.30-5.90) m/uL Hgb 16.3 (13.0-17.5) gm/dL Hct 49.5 (39.0-53.0) % MCV 87.9 (80.0-100.0) fL MCH 29.0 (25.0-35.0) pg MCHC 33.0 (31.0-37.0) g/dL RDW 13.9 (11.5-15.5) % Plt Count 258 (150-450) k/uL Neutrophils % 64 % Lymphocytes % 29 % Monocytes % 4 % Eosinophils % 2 % Basophils % 0 % Neutrophils # 4.6 (1.3-7.7) k/uL Lymphocytes # 2.0 (1.0-4.8) k/uL Monocytes # 0.3 (0-1.0) k/uL Eosinophils # 0.1 (0-0.7) k/uL Basophils # 0.0 (0-0.2) k/uL PT 10.4 (9.0-12.0) sec INR 1.0 (<1.2) APTT 26.1 (22.0-30.0) sec Plasma Lactic Acid Renan 1.7 (0.7-2.0) mmol/L Disposition Clinical Impression: Open wound of right hip, Chronic wound of extremity Disposition: HOME SELF-CARE Condition: Stable Instructions (If sedation given, give patient instructions): Chronic Wound Care (ED) Additional Instructions: Please return to the Emergency Department if symptoms worsen or any other concerns. Is patient prescribed a controlled substance at d/c from ED?: No [facility] [[facility] - 1-2 days Time of Disposition: 13:40
--- NOTE | 2018-09-03 01:16 | CDI ---
Documentation Clarification OP Dear Elvin LONG, PAC, Please do addendum to ED report for HPI , Physical exam and MDM. Thank you, Zena Cortez [employer] Instructor If you have any question, Please contact information services manager at [phone] [facility]
== END 2018-08-26 13:50 | disposition home or self-care (01) ==
LOC: EC 11:28
DX: S71.001A Unspecified open wound, right hip, initial encounter (principal); F17.200 Nicotine dependence, unspecified, uncomplicated; Z86.19 Personal history of other infectious and parasitic diseases
CPT/HCPCS: 36415; 73502; 80053; 83605; 85025; 85610; 85730; 87040; 99283

== ENCOUNTER 2024-03-06 10:30 | Emergency (ER) | payer OTHER ==
[2024-03-06] MEDS ORDERED: FLUORESCEIN STRIPS 1 MG STRIP ONE (11:22)
[2024-03-06] MEDS ORDERED: PROPARACAINE 0.5% OPHTH DROPS 15 ML BTL ONE (11:22)
== END 2024-03-06 11:30 | disposition home or self-care (01) ==
LOC: EC 10:30
CPT/HCPCS: 99284

== ENCOUNTER 2024-03-07 10:24 | Emergency (ER) | payer OTHER ==
[~2024-03-07 10:24] MED LIST changes: +FLUORESCEIN STRIPS 1 MG STRIP ONE; -NALOXONE 0.4 MG/ML 10 ML VIAL IVP PRN; +PROPARACAINE 0.5% OPHTH DROPS 15 ML BTL ONE
== END 2024-03-07 10:57 | disposition home or self-care (01) ==
LOC: EC 10:24
CPT/HCPCS: 99282